=== PATIENT | male | born 1960 | race Caucasian/White ===

== ENCOUNTER 2021-01-21 17:24 | Emergency (ER) | payer MEDICAID, SELFPAY ==
[2021-01-21 17:25] VITALS: BP 130/103; PULSE 94; RESP 20; TEMP 36.8; O2SAT 94; BMI 32.5
[2021-01-21 17:29] VITALS: BP 115/89; PULSE 94; RESP 20; TEMP 36.9; O2SAT 95
--- NOTE | 2021-01-21 17:58 | ED.DCSUM_ITS ---
History of Present Illness Chief Complaint: Abd Pain Informant: Patient Narrative: 60-year-old male presenting with several weeks of abdominal pain and distention. Now having vomiting. He states that he is vomiting up food that looks undigested food that he ate several weeks ago. He tells me that about a week ago he put himself only on a liquid diet. He states he has been having severe heartburn. He tells me that he has actually gained 30 to 40 pounds over the past 2 years. His amount of food required to make him feel full has drastically decreased recently. He states the pain in his abdomen has become so severe. He tells me that he has been intermittently having pencil thin stools. He notes no blood. He has not had a bowel movement for 1 week. Past Medical History - Allergies and Home Meds Allergies/Adverse Reactions: Allergies Gadolinium-MRI Contrast Medium [DYE] Allergy (Verified 01/21/21 17:35) Anaphylaxis Penicillins Allergy (Verified 01/21/21 17:35) Hives Primary Care Physician: Care Physician,No Primary [Primary Care Provider] - Past Medical History: - - Hypothyroidism hypertension prostate cancer eosinophilic granuloma Surgical History: noncontributory Lives: Spouse/ Significant Other Smoking Status: Current every day smoker Drugs: None Review of Systems General: Denies: Chills, Fever, Sweats Eyes: Denies: Visual changes - bilaterally, Diplopia ENT: Denies: Rhinorrhea, Sore throat Cardiovascular: Denies: Chest pain, Palpitations Respiratory: Denies: Dyspnea, Cough, Dyspnea on exertion Gastrointestinal: Reports: Abdominal pain, Nausea, Vomiting, Constipation. Denies: Diarrhea, Melena, Hematochezia Genitourinary: Denies: Dysuria, Hematuria, Frequency Musculoskeletal: Denies: Back pain, Extremity Pain Skin: Denies: Rash, Wounds Neurological: Denies: Headache, Weakness, Numbness Physical Exam Vital Signs/Narrative: Vital Signs Temp Pulse Resp BP Pulse Ox 01/21/21 17:29 98.4 F 94 20 H 115/89 H 95 01/21/21 17:25 98.2 F 94 20 H 130/103 H 94 Inital Vital Signs reviewed: Yes General: Well nourished, Well developed, No Acute Distress Head: Normocephalic, Atraumatic Eyes: Perrl, EOMI ENT: Moist mucous membranes, No rhinorrhea Neck: Supple, Nontender Cardiovascular: Regular rate, Regular rhythm, No murmurs Respiratory: No distress, CTA bilaterally, Chest nontender Abdomen: Tender, Hypoactive bowel sounds, - - Distended Back: Nontender, Normal Inspection Extremities: Nontender, No edema Skin: Normal color, No rash Neurological: Alert, Oriented x3, Cranial nerves II-XII grossly intact, Normal Strength, Normal Sensation Psychological: Normal affect, Normal Mood Diagnostic/Tx/Re-eval Clinical Impression(s) from Imaging Studies Abdomen/Pelvis CT 01/21/21 19:21 IMPRESSION: 1. Pancreatitis with inflammatory process extending about the third portion the duodenum and downward along the anterior mediastinum and small bowel mesentery. 2. Marked dilatation of the stomach secondary to functional obstruction to the duodenum due to inflammatory change from the pancreatitis. 3. Large fatty infiltration liver without mass. 4. Sigmoid diverticulosis. 5. Multiple bilateral renal calculi without obstruction. Electronically Signed: Dain Chavez DO at 20:19 EST Tel [phone], Service support , KUB X-Ray 01/21/21 20:40 IMPRESSION: 1. NG tube within the gastric lumen. This could be advanced to ensure the upper port lies within the gastric lumen. 2. Distention of the stomach. Electronically Signed: Dain Chavez DO at 20:59 EST Tel [phone], Service support , Laboratory Last Values WBC 9.4 K/mm3 (4.4-11.0) 01/21/21 18: RBC 5.28 M/mm3 (4.6-6.2) 01/21/21 18: Hgb 15.5 g/dL (13.0-16.5) 01/21/21 18: Hct 48.0 % (40-54) 01/21/21 18: MCV 90.9 fL (80-94) 01/21/21 18: MCH 29.4 pg (27.0-32.0) 01/21/21 18: MCHC 32.3 g/dL (32-36) 01/21/21 18: RDW Std Deviation 48.2 fl (35.1-43.9) H 01/21/21 18: RDW Coeff of Martínez 14.5 % (11.6-14.6) 01/21/21 18: Plt Count 276 K/mm3 (150-450) 01/21/21 18: MPV 8.5 fl (6.2-12.0) 01/21/21 18: Immature Gran % (Auto) 2.600 % (0.0-0.9) H 01/21/21 18: Neut % (Auto) 74.0 % (47-70) H 01/21/21 18: Lymph % (Auto) 13.9 % (19-41) L 01/21/21 18: [place] % (Auto) 8.1 % (0-10) 01/21/21 18: Eos % (Auto) 0.6 % (0-5) 01/21/21 18: Baso % (Auto) 0.8 % (0-1) 01/21/21 18: Absolute Neuts (auto) 7.0 X10^3/uL (2.0-7.7) 01/21/21 18: Absolute Lymphs (auto) 1.31 X10^3/uL (0.83-4.51) 01/21/21 18: Nucleated RBC % 0 % (0-5) 01/21/21 18: PT 13.1 SECONDS (11.7-14.9) 01/21/21 18: INR 1.0 01/21/21 18: APTT 27.0 Seconds (24.1-36.2) 01/21/21 18: Sodium 128 mmol/L (136-145) L 01/21/21 18: Potassium 4.1 mmol/L (3.5-5.1) 01/21/21 18: Chloride 89 mmol/L (98-107) L 01/21/21 18: Carbon Dioxide 27.0 mmol/L (21.0-32.0) 01/21/21 18: Anion Gap 12 (5-15) 01/21/21 18: BUN 15 mg/dL (7-18) 01/21/21 18: Creatinine 1.00 mg/dL (0.70-1.30) 01/21/21 18:22 Estim Creat Clear Calc 76.59 ml/min 01/21/21 18:22 Est GFR (MDRD) Af Amer 97 mL/min (>60) 01/21/21 18:22 Est GFR (MDRD) Non-Af 80 mL/min (>60) 01/21/21 18:22 BUN/Creatinine Ratio 15.0 RATIO (10-20) 01/21/21 18:22 Glucose 412 mg/dL (74-106) H 01/21/21 18:22 Lactic Acid 1.3 mmol/L (0.4-1.9) 01/21/21 18: Calcium 9.8 mg/dL (8.5-10.1) 01/21/21 18: Total Bilirubin 0.60 mg/dL (0.20-1.00) 01/21/21 18:22 AST 41 U/L (15-37) H 01/21/21 18:22 ALT 59 U/L (16-61) 01/21/21 18:22 Alkaline Phosphatase 179 U/L (45-117) H 01/21/21 18:22 Total Protein 8.3 g/dL (6.4-8.2) H 01/21/21 18: Albumin 3.1 g/dL (3.2-5.0) L 01/21/21 18:22 Globulin 5.2 g/dL (2.2-4.2) H 01/21/21 18:22 Albumin/Globulin Ratio 0.6 RATIO (0.9-2.4) L 01/21/21 18:22 Amylase 47 U/L (25-115) 01/21/21 18:22 Lipase 210 U/L (73-393) 01/21/21 18:22 - Medical Decision Making The patient received IV fluids Dilaudid and Zofran. Blood work reveals normal lipase and amylase. Blood sugar is over 400 there is evidence of ketones in his blood. However he is not gapped and his CO2 is normal. Covid test pending. CT of the pelvis was obtained which shows a markedly distended stomach down to the level of the pancreas. There is a fluid density arising from the inferior aspect of the pancreatic head which surrounds a thick-walled duodenum. Radiology is concerned about a pancreatitis. However his labs are normal. However could there be some pancreatic involvement given the elevated blood sugar? He received a dose of IV insulin. I am hesitant to place him on insulin drip as his blood sugar is only 400 and he has a 1.5 to 2-hour transfer to [facility]. 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 I discussed the case with general surgery here they are concerned about a possible SMA involvement versus mass. I spoke with the patient. After NG tube placement he has put out 4000 cc of green liquid. My concern is the [place] ck of surgical subspecialties here as is our general surgeon concerned about that as well. Ultimately I think the patient will most likely require surgery. We talked about transferring to another facility and he has chosen [facility] due to the ease of getting there from [place]. He has been accepted there. We will await squad transport. ED Disposition - Plan for ED Patient: Diagnosis: Small bowel obstruction, Hyperglycemia, Acute abdominal pain Referrals: Care Physician,No Primary [Primary Care Provider] -
[2021-01-21] MEDS: Ondansetron 4 MG/2 ML Vial IV (18:18)
[2021-01-21] MEDS: HYDROmorphone 1 MG/ML Syringe IV ×3 (18:18→23:47)
[2021-01-21] MEDS: 0.9% Normal Saline 1,000 ML 125 ML IV (18:19)
[2021-01-21 18:37] LABS: Absolute Lymphocyte Count 1.31 X10^3/uL (0.83-4.51); Basophil# 0.08 X10^3/uL; Basophil% 0.8 % (0-1); Eosinophil# 0.06 X10^3/uL; Eosinophils% 0.6 % (0-5); Hemoglobin 15.5 g/dL (13.0-16.5); Lymphocyte # 1.31 X10^3/ul (4.0); Lymphocyte % 13.9 % (19-41); Mean Corp Hgb Conc 32.3 g/dL (32-36); Mean Corpuscular Hgb 29.4 pg (27.0-32.0); Mean Corpuscular Volume 90.9 fL (80-94); Mean Platelet Vol. 8.5 fl (6.2-12.0); Monocyte# 0.76 X10^3/uL; Monocyte% 8.1 % (0-10); NRBC Flagged by Analyzer 0 % (0-5); Neutrophil # 6.98 X10^3/uL (2.7-7.7); Platelet Count 276 K/mm3 (150-450); RBC Distribution Width CV 14.5 % (11.6-14.6); RBC Distribution Width SD 48.2 fl (35.1-43.9); Red Blood Count 5.28 M/mm3 (4.6-6.2); White Blood Count 9.4 K/mm3 (4.4-11.0)
[2021-01-21 18:50] LABS: Prothrombin Time (Protime)PT. 13.1 SECONDS (11.7-14.9)
[2021-01-21 18:56] LABS: ALB/GLOB Ratio 0.6 RATIO (0.9-2.4); AST(SGOT) 41 U/L (15-37); Alanine Aminotransfer ALT/SGPT 59 U/L (16-61); Albumin, Serum 3.1 g/dL (3.2-5.0); Alkaline Phosphatase 179 U/L (45-117); Amylase 47 U/L (25-115); Anion Gap 12 (5-15); BUN 15 mg/dL (7-18); Calcium,Total 9.8 mg/dL (8.5-10.1); Chloride 89 mmol/L (98-107); EST Glomerular Filtration Rate 80 mL/min (>60); Est Glom Filt Rate - Afr Amer 97 mL/min (>60); Estimated Creatinine Clearance 76.59 ml/min; Globulin 5.2 g/dL (2.2-4.2); Glucose 412 mg/dL (74-106); Lipase 210 U/L (73-393); Potassium 4.1 mmol/L (3.5-5.1); Protein, Total 8.3 g/dL (6.4-8.2); Sodium Level 128 mmol/L (136-145)
[2021-01-21 19:08] LABS: Lactic Acid 1.3 mmol/L (0.4-1.9)
--- NOTE | 2021-01-21 19:21 | CT_ITS ---
STUDY: CT ABDOMEN AND PELVIS WITH CONTRAST REASON FOR EXAM: Male, 60 years old. Abdominal pain and swelling. RADIATION DOSAGE (If Supplied By Facility): CTDIvol = ( 20.18 ) mGy, DLP = ( 1132.06 ) mGycm TECHNIQUE: Transaxial images were obtained from the dome of the diaphragm to the symphysis pubis without oral contrast. IV 100mL Isovue-300 was administered. Sagittal and coronal images were reconstructed. Individualized dose optimization techniques were used for this CT. COMPARISON: 07/30/2016. FINDINGS: Diffuse emphysematous changes the lung bases without basilar infiltrate. The visualized portions of the heart are within normal limits. The liver is enlarged and diffusely fatty infiltrated. There is no focal mass. Normal gallbladder and extrahepatic biliary system. Normal spleen. There is slight enlargement of the inferior head of the pancreas which is heterogenous in density. There is fluid density density arising from the inferior aspect of the the pancreatic head, which surrounds the thick walled duodenum and extends downward into the small bowel mesentery and along the anterior retroperitoneum to the pelvic brim. This is not previously present and is thought to represent pancreatitis. Normal bilateral adrenal glands. The kidneys are of normal size and cortical thickness. There is normal contrast enhancement. There are multiple small nonobstructing calculi bilaterally without hydronephrosis. Normal visualized ureters. The stomach is distended with fluid. This is thought to be due to the inflammatory changes and luminal narrowing of the third portion of the duodenum secondary to the associated pancreatitis. Normal small intestine. There is descending and sigmoid diverticulosis without acute inflammatory change. The proximal colon is unremarkable. There is non-visualization of the appendix. Normal abdominal aorta. Normal inferior vena cava. Normal retroperitoneum. Normal urinary bladder. Small prostate. There is no pelvic lymphadenopathy. No free air or free fluid is seen within the peritoneal cavity. There are small bilateral inguinal hernias of omental fat. The abdominal wall is otherwise unremarkable. There are diffuse degenerative changes of the visualized lumbar spine. Mild anterolisthesis of L4 and L5 without pars defects. CT/Abdomen/Pelvis W IV Cont ONLY IMPRESSION: 1. Pancreatitis with inflammatory process extending about the third portion the duodenum and downward along the anterior mediastinum and small bowel mesentery. 2. Marked dilatation of the stomach secondary to functional obstruction to the duodenum due to inflammatory change from the pancreatitis. 3. Large fatty infiltration liver without mass. 4. Sigmoid diverticulosis. 5. Multiple bilateral renal calculi without obstruction. Electronically Signed: Dain Chavez DO at 20:19 EST Tel [phone], Service support ,
[2021-01-21] MEDS: Lidocaine 4% 5 ML Ampul 2 ML INHALATION (20:19)
--- NOTE | 2021-01-21 20:40 | RAD_ITS ---
STUDY: X-RAY - ABDOMEN/PELVIS REASON FOR EXAM: Male, 60 years old. NG tube placement. TECHNIQUE: Single AP view of the lower chest and upper abdomen COMPARISON: None. FINDINGS: Normal visualized lung bases. There is an enteric tube with its tip approximately 11 cm below the diaphragm. Air and fluid is seen in the stomach. The remainder the abdomen is poorly visualized There is no demonstrated free abdominal air. The visualized liver and spleen are grossly normal in size and morphology. Contrast is seen in both kidneys secondary to prior abdominal CT. Normal soft tissue structures. Normal visualized osseous structures. RAD/Abdomen Single View (Portable) IMPRESSION: 1. NG tube within the gastric lumen. This could be advanced to ensure the upper port lies within the gastric lumen. 2. Distention of the stomach. Electronically Signed: Dain Chavez DO at 20:59 EST Tel [phone], Service support ,
[2021-01-21 20:58] VITALS: BP 116/80; PULSE 87; RESP 19; O2SAT 92
[2021-01-21] MEDS: Insulin Lispro 100 UNIT/ML INSULN.PEN 10 UNIT SC (21:14)
[2021-01-21] MEDS: 0.9% Normal Saline 1,000 ML 999 ML IV (21:14)
[2021-01-21 22:26] VITALS: BP 124/94; PULSE 83; RESP 18; O2SAT 92
[2021-01-21 22:31] LABS: Bedside Glucose 327 mg/dL (70-110)
== END 2021-01-21 23:58 | disposition short-term general hospital (02) ==
LOC: ED 18:22
PROVIDERS: Emergency Provider Emergency Medicine
DX: K56.609 Unspecified intestinal obstruction, unspecified as to partial versus complete obstruction (principal); R73.9 Hyperglycemia, unspecified; R10.9 Unspecified abdominal pain; E03.9 Hypothyroidism, unspecified; I10 Essential (primary) hypertension; K57.30 Diverticulosis of large intestine without perforation or abscess without bleeding; K76.0 Fatty (change of) liver, not elsewhere classified; K85.90 Acute pancreatitis without necrosis or infection, unspecified; N20.0 Calculus of kidney; F17.200 Nicotine dependence, unspecified, uncomplicated; Z85.46 Personal history of malignant neoplasm of prostate; Z88.0 Allergy status to penicillin
CPT/HCPCS: 74018; 74177; 80053; 82009; 82150; 82962; 83605; 83690; 85025; 85610; 85730; 87426; 94640; 96361; 96374; 96375; 96376; 99285; J7030; Q9967; A4216; J2405

== ENCOUNTER → 2021-02-22 15:48 | Outpatient (CLI) | payer MEDICAID, SELFPAY ==
[2021-02-22 14:20] VITALS: BMI 29.8
[2021-02-22 16:29] LABS: Absolute Lymphocyte Count 2.47 X10^3/uL (0.83-4.51); Basophil# 0.07 X10^3/uL; Basophil% 0.8 % (0-1); Eosinophil# 0.26 X10^3/uL; Hematocrit 43.4 % (40-54); Hemoglobin 14.1 g/dL (13.0-16.5); Lymphocyte # 2.47 X10^3/ul (4.0); Lymphocyte % 28.7 % (19-41); Mean Corp Hgb Conc 32.5 g/dL (32-36); Mean Corpuscular Hgb 29.2 pg (27.0-32.0); Mean Corpuscular Volume 89.9 fL (80-94); Mean Platelet Vol. 8.6 fl (6.2-12.0); Monocyte# 0.73 X10^3/uL; Monocyte% 8.5 % (0-10); NRBC Flagged by Analyzer 0 % (0-5); Neutrophil # 5.03 X10^3/uL (2.7-7.7); Neutrophil % 58.4 % (47-70); Platelet Count 305 K/mm3 (150-450); RBC Distribution Width SD 49.3 fl (35.1-43.9); Red Blood Count 4.83 M/mm3 (4.6-6.2); White Blood Count 8.6 K/mm3 (4.4-11.0)
[2021-02-22 16:49] LABS: Vitamin D,25 Hydroxy 21.4 ng/mL
[2021-02-22 16:51] LABS: Hemoglobin A1c 10.4 % (3.8-5.6)
[2021-02-22 16:56] LABS: ALB/GLOB Ratio 0.8 RATIO (0.9-2.4); AST(SGOT) 29 U/L (15-37); Alanine Aminotransfer ALT/SGPT 50 U/L (16-61); Albumin, Serum 3.4 g/dL (3.2-5.0); Alkaline Phosphatase 113 U/L (45-117); Anion Gap 7 (5-15); BUN 16 mg/dL (7-18); BUN/Creat Ratio 17.4 RATIO (10-20); Calcium,Total 9.5 mg/dL (8.5-10.1); Chloride 103 mmol/L (98-107); Creatinine, Serum 0.92 mg/dL (0.70-1.30); EST Glomerular Filtration Rate 88 mL/min (>60); Est Glom Filt Rate - Afr Amer 107 mL/min (>60); Glucose 91 mg/dL (74-106); PSA,Total - Annual Screen 0.57 ng/mL (0.00-4.00); Potassium 4.2 mmol/L (3.5-5.1); Protein, Total 7.4 g/dL (6.4-8.2); Sodium Level 137 mmol/L (136-145)
[2021-02-22 18:00] LABS: Free T3 2.3 pg/mL (2.18-3.98); T4 Free Direct 0.64 ng/dL (0.76-1.46)
== END ==
PROVIDERS: PCP Internal Medicine; Visit Provider Internal Medicine
DX: R19.03 Right lower quadrant abdominal swelling, mass and lump (principal); R79.89 Other specified abnormal findings of blood chemistry
CPT/HCPCS: 36415; 80053; 82306; 83036; 84153; 84439; 84443; 84481; 85025; G0103

== ENCOUNTER → 2021-03-02 17:45 | Outpatient (CLI) | payer MEDICAID, SELFPAY ==
[2021-02-22 14:20] VITALS: BMI 29.8
--- NOTE | 2021-03-02 17:58 | CT_ITS ---
INDICATION: SMALL BOWEL OBSTRUCTION, PANCREATIC MASS EXAMINATION: CT Abdomen And Pelvis W/ Contrast Injection TECHNIQUE: Helically acquired images were obtained of the abdomen and pelvis after IV contrast. A radiation dose optimization technique was used for this scan. IV Contrast dosage and agent: 100 cc ISOVUE-300 Oral contrast: Yes. COMPARISON: 01/21/2021 FINDINGS: Visualized lung bases: Severe emphysematous changes. Liver: Enlarged. Diffusely hypodense consistent with fatty liver. Gallbladder: Unremarkable Spleen: Unremarkable Pancreas: Interval decrease in size of thin-walled extrapancreatic fluid collection inferior to the head of the pancreas measuring 4.6 x 4.8 x 2.4 cm, previously 7.7 x 6.5 x 4.7 cm. 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 Adrenal Glands: Unremarkable Kidneys: Unremarkable GI Tract: Status post gastrojejunostomy. Interval improvement in stricture of the third portion of the duodenum. Scattered diverticula throughout the colon without evidence of inflammation. Vasculature: Unremarkable Lymphadenopathy: Persistent peripancreatic lymphadenopathy. For example a 2.1 cm peripancreatic node (image 64, series 601). Peritoneum: No ascites. Bladder: Unremarkable Reproductive organs: Unremarkable Bones/Soft tissues: Small bilateral inguinal hernias of omental fat. There are diffuse degenerative changes of the visualized lumbar spine. Grade I anterolisthesis of L4 and L5 without pars defects. CT/Abdomen/Pelvis WITH Contrast IMPRESSION: Interval decrease in size of walled-off necrosis located inferior to the pancreatic head. Interval decrease in extent of pancreatic necrosis in the head of the pancreas as well. Interval improvement in stricture of the third portion of the duodenum. Cannot rule out underlying mass in the head of the pancreas. Recommend additional short term follow-up CT abdomen/pelvis. Postsurgical changes from recent gastrojejunostomy. Otherwise, no change from prior exam. Electronically Signed: Kaiser Pedro MD at 21:36 EDT Tel , Service support ,
== END ==
PROVIDERS: PCP Internal Medicine
DX: K86.89 Other specified diseases of pancreas (principal); K56.609 Unspecified intestinal obstruction, unspecified as to partial versus complete obstruction
CPT/HCPCS: 74177; Q9967

== ENCOUNTER → 2021-03-12 13:17 | Outpatient (CLI) | payer MEDICAID, SELFPAY ==
[2021-02-22 14:20] VITALS: BMI 29.8
--- NOTE | 2021-03-12 13:19 | VDUE_ITS ---
Reason For Study: PAIN Right Proximal Right jugular vein is spontaneous, widely patent, phasic, with no intraluminal echogenicity noted. Right subclavian vein is spontaneous, widely patent, phasic, with no intraluminal echogenicity noted. Right Lower Arm Right radial vein is compressible. Right ulnar vein is compressible. Right Arm Right axillary vein is spontaneous, patent, phasic, competent, compressible and demonstrates augmentation. Right brachial vein is compressible. Right cephalic vein is compressible. Right basilic vein is compressible. VL/Venous Duplex US, Unilateral Interpretation Summary No evidence for acute deep venous thrombosis[right] upper extremity with patent and compressible cephalic and basilic veins. Ordering Physician: Elizabeth Costa Referring Physician: Elizabeth Costa Performed By: Valery Chang, LAVERNECS, RVT ?
== END ==
PROVIDERS: PCP Internal Medicine; Referring Provider Internal Medicine; Visit Provider Internal Medicine
DX: G56.21 Lesion of ulnar nerve, right upper limb (principal)
CPT/HCPCS: 93971

== ENCOUNTER 2021-03-12 19:48 | Emergency (ER) | payer MEDICAID, SELFPAY ==
[2021-03-12 19:48] VITALS: BP 153/119; PULSE 107; RESP 15; TEMP 36.7; O2SAT 98; BMI 31.1
[2021-03-12 19:56] VITALS: BP 153/119; PULSE 102; RESP 16; O2SAT 95
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
[2021-03-12 20:48] VITALS: BP 156/98; PULSE 101; RESP 18; O2SAT 96
== END 2021-03-12 22:21 | disposition home or self-care (01) ==
PROVIDERS: Emergency Provider Emergency Medicine; PCP Internal Medicine
DX: T40.601A Poisoning by unspecified narcotics, accidental (unintentional), initial encounter (principal); J44.9 Chronic obstructive pulmonary disease, unspecified; K21.9 Gastro-esophageal reflux disease without esophagitis; E11.9 Type 2 diabetes mellitus without complications; E03.9 Hypothyroidism, unspecified; F32.9 Major depressive disorder, single episode, unspecified; Z85.07 Personal history of malignant neoplasm of pancreas; F17.210 Nicotine dependence, cigarettes, uncomplicated; F12.90 Cannabis use, unspecified, uncomplicated
CPT/HCPCS: 93971; 99284; A4216

== ENCOUNTER → 2021-03-17 09:43 | Outpatient (CLI) | payer MEDICAID, SELFPAY ==
[2021-03-12 19:48] VITALS: BMI 31.1
[2021-03-17 12:30] LABS: ALB/GLOB Ratio 1.1 RATIO (0.9-2.4); AST(SGOT) 26 U/L (15-37); Alanine Aminotransfer ALT/SGPT 36 U/L (16-61); Albumin, Serum 3.9 g/dL (3.2-5.0); Alkaline Phosphatase 122 U/L (45-117); Anion Gap 6 (5-15); BUN 11 mg/dL (7-18); BUN/Creat Ratio 11.8 RATIO (10-20); Calcium,Total 9.7 mg/dL (8.5-10.1); Chloride 103 mmol/L (98-107); Creatinine, Serum 0.94 mg/dL (0.70-1.30); EST Glomerular Filtration Rate 87 mL/min (>60); Est Glom Filt Rate - Afr Amer 105 mL/min (>60); Globulin 3.5 g/dL (2.2-4.2); Glucose 109 mg/dL (74-106); Potassium 4.1 mmol/L (3.5-5.1); Protein, Total 7.4 g/dL (6.4-8.2); Sodium Level 137 mmol/L (136-145)
[2021-03-18 16:42] LABS: Carbohydrate AG 19-9 34 U/mL (0-35)
== END ==
PROVIDERS: PCP Internal Medicine; Referring Provider Internal Medicine; Visit Provider Internal Medicine
DX: K86.9 Disease of pancreas, unspecified (principal)
CPT/HCPCS: 36415; 80053; 86301

== ENCOUNTER 2022-01-06 09:42 | Outpatient (CLI) | payer MEDICAID, SELFPAY ==
[2022-01-06 12:06] LABS: Absolute Lymphocyte Count 1.45 X10^3/uL (0.83-4.51); Absolute Neutrophil Count 4.6 X10^3/uL (2.0-7.7); Basophil# 0.08 X10^3/uL; Basophil% 1.1 % (0-1); Eosinophil# 0.33 X10^3/uL; Eosinophils% 4.5 % (0-5); Hematocrit 44.4 % (40-54); Hemoglobin 15.2 g/dL (13.0-16.5); Lymphocyte # 1.45 X10^3/ul (0.83-4.51); Lymphocyte % 19.7 % (19-41); Mean Corp Hgb Conc 34.2 g/dL (32-36); Mean Corpuscular Hgb 29.6 pg (27.0-32.0); Mean Corpuscular Volume 86.5 fL (80-94); Mean Platelet Vol. 9.4 fl (6.2-12.0); Monocyte# 0.84 X10^3/uL; Monocyte% 11.4 % (0-10); NRBC Flagged by Analyzer 0 % (0-5); Neutrophil % 62.5 % (47-70); Platelet Count 221 K/mm3 (150-450); RBC Distribution Width CV 14.4 % (11.6-14.6); RBC Distribution Width SD 45.8 fl (35.1-43.9); Red Blood Count 5.13 M/mm3 (4.6-6.2); White Blood Count 7.4 K/mm3 (4.4-11.0)
[2022-01-06 12:38] LABS: AST(SGOT) 15 U/L (15-37); Alanine Aminotransfer ALT/SGPT 31 U/L (16-61); Albumin, Serum 3.5 g/dL (3.2-5.0); Alkaline Phosphatase 105 U/L (45-117); Anion Gap 5 (5-15); BUN 16 mg/dL (7-18); BUN/Creat Ratio 20.9 RATIO (10-20); Chloride 106 mmol/L (98-107); Cholesterol 163 mg/dL (200); Creatinine, Serum 0.76 mg/dL (0.70-1.30); EST Glomerular Filtration Rate 109 mL/min (>60); Est Glom Filt Rate - Afr Amer 132 mL/min (>60); Free T3 2.5 pg/mL (2.18-3.98); Globulin 3.5 g/dL (2.2-4.2); Glucose 91 mg/dL (74-106); High Density Lipoprotein 41 mg/dL; Potassium 4.3 mmol/L (3.5-5.1); Sodium Level 138 mmol/L (136-145); T4 Free Direct 0.65 ng/dL (0.76-1.46); Thyroid Stim Hormone (TSH) 8.36 uIU/mL (0.358-3.74); Triglycerides 305 mg/dL; Very Low Density Lipoprotein 61 mg/dL (5-40)
== END 2022-01-06 23:59 | disposition home or self-care (01) ==
LOC: BIMLAB 09:42
PROVIDERS: PCP Internal Medicine; Referring Provider Internal Medicine; Visit Provider Internal Medicine
DX: J43.9 Emphysema, unspecified (principal); E11.9 Type 2 diabetes mellitus without complications; E03.9 Hypothyroidism, unspecified; K21.9 Gastro-esophageal reflux disease without esophagitis; R10.9 Unspecified abdominal pain; R19.01 Right upper quadrant abdominal swelling, mass and lump; Z72.0 Tobacco use
CPT/HCPCS: 36415; 80053; 80061; 82306; 84439; 84443; 84481; 85025

== ENCOUNTER → 2022-03-31 | Outpatient (CLI) | payer MEDICAID, SELFPAY ==
--- NOTE | 2022-03-31 17:24 | CT_ITS ---
STUDY: CT ABDOMEN AND PELVIS WITH CONTRAST REASON FOR EXAM: Male, 61 years old. Abdominal mass. Abdominal bloating. RADIATION DOSAGE (If Supplied By Facility): CTDIvol = ( 17.04 ) mGy, DLP = ( 1032.20 ) mGycm TECHNIQUE: Transaxial images were obtained from the dome of the diaphragm to the symphysis pubis without oral contrast. IV 100mL Isovue-370 was administered. Sagittal and coronal images were reconstructed. Individualized dose optimization techniques were used for this CT. COMPARISON: Comparison is made with prior study dated 03/02/2021. FINDINGS: The visualized lung bases are unremarkable. The visualized portions of the heart are within normal limits. There is decreased attenuation of the liver consistent with steatosis. Normal gallbladder and extrahepatic biliary system. Normal spleen. Normal pancreas. No pancreatic mass is seen. The previously seen fluid collection inferior to the head of the pancreas is not seen at this time. Normal bilateral adrenal glands. Normal right kidney. Normal left kidney. Normal visualized stomach. Normal small intestine. There are scattered colonic diverticula consistent with diverticulosis. The appendix is visualized and appears normal. Normal abdominal aorta. Normal inferior vena cava. Normal retroperitoneum. Normal urinary bladder. Normal abdominal wall. There are degenerative changes of the visualized lumbar spine. Grade 1 anterolisthesis of L4 on L5. CT/Abdomen/Pelvis WITH Contrast IMPRESSION: No acute abnormality is seen. Fatty infiltration of the liver. Electronically Signed: Vladislav Peña MD at 9:12 EDT ,
[2022-03-31 17:41] LABS: CREATININE FINGERSTICK 0.9 mg/dL (0.70-1.30); EGFR FINGERSTICK > 60.0000 mL/min (>60)
== END | disposition home or self-care (01) ==
LOC: CT 17:22
PROVIDERS: PCP Internal Medicine; Visit Provider Internal Medicine
DX: R19.01 Right upper quadrant abdominal swelling, mass and lump (principal)
CPT/HCPCS: 74177; Q9967

== ENCOUNTER → 2022-04-26 | Outpatient (CLI) | payer MEDICAID, SELFPAY ==
[2022-04-26 10:42] LABS: Free T3 2.9 pg/mL (2.18-3.98); T4 Free Direct 0.69 ng/dL (0.76-1.46); Thyroid Stim Hormone (TSH) 9.47 uIU/mL (0.358-3.74)
== END | disposition home or self-care (01) ==
LOC: BIMLAB 08:33
PROVIDERS: PCP Internal Medicine; Visit Provider Internal Medicine
DX: E03.9 Hypothyroidism, unspecified (principal)
CPT/HCPCS: 36415; 84439; 84443; 84481

== ENCOUNTER → 2022-08-29 | Outpatient (CLI) | payer MEDICAID, SELFPAY ==
--- NOTE | 2022-08-29 09:18 | RAD_ITS ---
STUDY: CHEST SERIES--PA AND LATERAL VIEWS OF 0926 HOURS ON 08/29/2022 REASON FOR EXAM: 62-year-old male with cough, phlegm, and dyspnea. TECHNIQUE: A standard 2 view chest x-ray series was obtained. COMPARISON: 07/30/2016. FINDINGS: Mild demineralization. No cardiomegaly. Mild emphysema with mild fibrotic changes throughout both lungs, especially in the left lower lobe. No pulmonary infiltrates, atelectasis, effusion or pulmonary mass lesions. No pneumonia, pneumonitis, or bronchitis. RAD/Chest PA and Lateral IMPRESSION: 1. Mild emphysema with mild fibrotic changes throughout both lungs, especially in the left lower lobe. 2. No other evidence of active cardiopulmonary disease. 3. No pneumonia, pneumonitis, or bronchitis. 4. Mild demineralization. Electronically Signed: Michael Campos MD at 1:54 EDT ,
[2022-08-29 09:53] LABS: Absolute Lymphocyte Count 1.96 X10^3/uL (0.83-4.51); Absolute Neutrophil Count 4.9 X10^3/uL (2.0-7.7); Basophil# 0.09 X10^3/uL; Basophil% 1.1 % (0-1); Eosinophil# 0.24 X10^3/uL; Eosinophils% 2.9 % (0-5); Hematocrit 42.4 % (40-54); Hemoglobin 13.9 g/dL (13.0-16.5); Lymphocyte # 1.96 X10^3/ul (0.83-4.51); Lymphocyte % 23.3 % (19-41); Mean Corp Hgb Conc 32.8 g/dL (32-36); Mean Corpuscular Hgb 29.2 pg (27.0-32.0); Mean Corpuscular Volume 89.1 fL (80-94); Mean Platelet Vol. 8.2 fl (6.2-12.0); Monocyte# 1.03 X10^3/uL; Monocyte% 12.3 % (0-10); NRBC Flagged by Analyzer 0 % (0-5); Neutrophil # 4.89 X10^3/uL (2.7-7.7); Neutrophil % 58.1 % (47-70); Platelet Count 337 K/mm3 (150-450); RBC Distribution Width CV 14.6 % (11.6-14.6); RBC Distribution Width SD 48.5 fl (35.1-43.9); Red Blood Count 4.76 M/mm3 (4.6-6.2); White Blood Count 8.4 K/mm3 (4.4-11.0)
[2022-08-29 10:13] LABS: ALB/GLOB Ratio 0.7 RATIO (0.9-2.4); AST(SGOT) 16 U/L (15-37); Alanine Aminotransfer ALT/SGPT 27 U/L (16-61); Albumin, Serum 3.1 g/dL (3.2-5.0); Alkaline Phosphatase 113 U/L (45-117); Anion Gap 7 (5-15); BUN 19 mg/dL (7-18); BUN/Creat Ratio 22.9 RATIO (10-20); Calcium,Total 9.2 mg/dL (8.5-10.1); Chloride 105 mmol/L (98-107); Cholesterol 153 mg/dL (200); Creatinine, Serum 0.83 mg/dL (0.70-1.30); EST Glomerular Filtration Rate 99 mL/min (>60); Est Glom Filt Rate - Afr Amer 120 mL/min (>60); Free T3 2.9 pg/mL (2.18-3.98); Globulin 4.2 g/dL (2.2-4.2); Glucose 98 mg/dL (74-106); High Density Lipoprotein 29 mg/dL; PSA,Total - Annual Screen 0.51 ng/mL (0.00-4.00); Potassium 4.2 mmol/L (3.5-5.1); Protein, Total 7.3 g/dL (6.4-8.2); Sodium Level 140 mmol/L (136-145); T4 Free Direct 0.85 ng/dL (0.76-1.46); Thyroid Stim Hormone (TSH) 4.95 uIU/mL (0.358-3.74); Triglycerides 225 mg/dL; Very Low Density Lipoprotein 45 mg/dL (5-40)
== END | disposition home or self-care (01) ==
LOC: LAB 09:06
PROVIDERS: PCP Internal Medicine; Referring Provider Internal Medicine; Visit Provider Internal Medicine
DX: J43.9 Emphysema, unspecified (principal); E11.9 Type 2 diabetes mellitus without complications; R05.9 Cough, unspecified; E03.9 Hypothyroidism, unspecified; Z12.5 Encounter for screening for malignant neoplasm of prostate; Z72.0 Tobacco use; K21.9 Gastro-esophageal reflux disease without esophagitis
CPT/HCPCS: 84153; 36415; 71046; 80053; 80061; 84439; 84443; 84481; 85025; G0103

== ENCOUNTER → 2023-01-23 | Outpatient (CLI) | payer MEDICAID, SELFPAY ==
--- NOTE | 2023-01-23 08:12 | CT_ITS ---
STUDY: CT ABDOMEN AND PELVIS WITH CONTRAST REASON FOR EXAM: Male, 62 years old. F/U mass pancreas - compare with prior scans RADIATION DOSAGE (If Supplied By Facility): CTDIvol = ( 15.81 ) mGy, DLP = ( 1106.38 ) mGycm TECHNIQUE: Transaxial images were obtained from the dome of the diaphragm to the symphysis pubis without oral contrast. IV 100mL Isovue-370 was administered. Sagittal and coronal images were reconstructed. Individualized dose optimization techniques were used for this CT. COMPARISON: Comparison is made with prior study dated 03/31/2022. FINDINGS: The visualized lung bases are unremarkable. The visualized portions of the heart are within normal limits. There is decreased attenuation of the liver consistent with steatosis. Hepatomegaly. Normal gallbladder and extrahepatic biliary system. Normal spleen. Normal pancreas. Normal bilateral adrenal glands. Normal right kidney. Normal left kidney. Normal visualized stomach. Normal small intestine. Moderate amount of fecal material is seen in the colon. The patient is status post appendectomy. There is scattered atherosclerotic calcification of the abdominal aorta, without a demonstrated aneurysm. Normal inferior vena cava. There is borderline retroperitoneal lymphadenopathy with enlarged nodes no greater than 10mm in the short axis diameter. Normal urinary bladder. Normal abdominal wall. There are diffuse degenerative changes of the visualized lumbar spine. Mild degree of anterolisthesis of L4 on L5 most likely secondary to facet joint osteoarthritis. Schmorl''s node is seen in the superior endplate of the L2 vertebra. CT/Abdomen/Pelvis WITH Contrast IMPRESSION: Fatty infiltration of the liver. Hepatomegaly. No acute abnormality is seen. Electronically Signed: Vladislav Peña MD at 12:33 EST ,
[2023-01-23 08:34] LABS: Absolute Lymphocyte Count 2.89 X10^3/uL (0.83-4.51); Absolute Neutrophil Count 4.3 X10^3/uL (2.0-7.7); Basophil# 0.08 X10^3/uL; Basophil% 0.9 % (0-1); Eosinophil# 0.31 X10^3/uL; Eosinophils% 3.6 % (0-5); Hematocrit 46.7 % (40-54); Hemoglobin 15.6 g/dL (13.0-16.5); Lymphocyte # 2.89 X10^3/ul (0.83-4.51); Lymphocyte % 33.7 % (19-41); Mean Corp Hgb Conc 33.4 g/dL (32-36); Mean Corpuscular Hgb 29.3 pg (27.0-32.0); Mean Corpuscular Volume 87.8 fL (80-94); Mean Platelet Vol. 8.7 fl (6.2-12.0); Monocyte% 10.5 % (0-10); NRBC Flagged by Analyzer 0 % (0-5); Neutrophil # 4.27 X10^3/uL (2.7-7.7); Neutrophil % 49.9 % (47-70); Platelet Count 222 K/mm3 (150-450); RBC Distribution Width CV 14.6 % (11.6-14.6); RBC Distribution Width SD 46.9 fl (35.1-43.9); Red Blood Count 5.32 M/mm3 (4.6-6.2); White Blood Count 8.6 K/mm3 (4.4-11.0)
[2023-01-23 08:40] LABS: CREATININE FINGERSTICK < 0.9 mg/dL (0.70-1.30); EGFR FINGERSTICK > 60.0000 mL/min (>60)
[2023-01-23 09:10] LABS: AST(SGOT) 15 U/L (15-37); Alanine Aminotransfer ALT/SGPT 29 U/L (16-61); Albumin, Serum 3.6 g/dL (3.2-5.0); Alkaline Phosphatase 112 U/L (45-117); Anion Gap 6 (5-15); BUN 19 mg/dL (7-18); BUN/Creat Ratio 21.9 RATIO (10-20); Chloride 104 mmol/L (98-107); Cholesterol 193 mg/dL (200); Creatinine, Serum 0.87 mg/dL (0.70-1.30); EST Glomerular Filtration Rate 94 mL/min (>60); Est Glom Filt Rate - Afr Amer 114 mL/min (>60); Free T3 2.4 pg/mL (2.18-3.98); Globulin 3.7 g/dL (2.2-4.2); Glucose 119 mg/dL (74-106); High Density Lipoprotein 36 mg/dL; Potassium 4.2 mmol/L (3.5-5.1); Protein, Total 7.3 g/dL (6.4-8.2); Sodium Level 139 mmol/L (136-145); Triglycerides 578 mg/dL
== END | disposition home or self-care (01) ==
LOC: CT 08:05
PROVIDERS: PCP Internal Medicine; Referring Provider Internal Medicine; Visit Provider Internal Medicine
DX: Z13.220 Encounter for screening for lipoid disorders (principal); E11.9 Type 2 diabetes mellitus without complications; Z98.0 Intestinal bypass and anastomosis status; R19.01 Right upper quadrant abdominal swelling, mass and lump; R10.9 Unspecified abdominal pain; E55.9 Vitamin D deficiency, unspecified; E03.9 Hypothyroidism, unspecified; Z72.0 Tobacco use; K21.9 Gastro-esophageal reflux disease without esophagitis
CPT/HCPCS: 36415; 74177; 80053; 80061; 82306; 84443; 84481; 85025; Q9967

== ENCOUNTER 2023-05-16 04:21 | Emergency (ER) | payer MEDICAID, SELFPAY ==
[2023-05-16 04:23] VITALS: BP 170/95; PULSE 102; RESP 20; TEMP 36.6; O2SAT 94; BMI 32.1
--- NOTE | 2023-05-16 04:36 | RAD_ITS ---
INDICATION: pain -- hx bone ca in past EXAMINATION/TECHNIQUE: X-RAY - XR Spine Cervical 4 or 5 Views COMPARISON FINDINGS: VERTEBRAE: Preserved vertebral body height. No fracture. No spondylolisthesis. Preservation of the normal cervical lordosis. No significant facet arthropathy. DISCS: There is severe multilevel spondylosis more prominent at C4-5, C5-6 and C6-7. NECK SOFT TISSUES: No prevertebral soft tissue widening. LUNG APICES: Clear. RAD/Cerv Spine 2 or 3 Views IMPRESSION: There is severe multilevel spondylosis more prominent at C4-5, C5-6 and C6-7. Electronically Signed: Juan M Glaser MD at 5:00 EDT ,
--- NOTE | 2023-05-16 04:37 | EDS_ITS ---
HPI History of Present Illness Chief Complaint: Other, Pain/Inj Informant: patient and spouse/S.O. Narrative Narrative: Increasing right posterior neck pain and swelling over the past week. Pain worse with movement. No radicular pain down the arms. 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 He had previous radiation therapies. This history is concerned of cancer. Denies symptoms in the neck in the past. Prior similar symptoms: No PFSH PFSH Medical History Arthritis or polyarthritis, rheumatoid Eosinophilic granuloma of bone Neuropathy Pancreatic tumor Home Medications blood sugar diagnostic (True Metrix Glucose Test Strip) #100 ea 12/06/21 [Rx Last Taken Unknown] handicap placard #1 ea 04/27/22 [Rx Last Taken Unknown] pantoprazole 40 mg tablet,delayed release 40 mg PO DAILY #90 tabs 12/16/22 [Rx Last Taken Unknown] albuterol sulfate 90 mcg/actuation aerosol inhaler 2 puff inhalation Q8H PRN shortness of breath or wheezing #8.5 grams 01/04/23 [Rx Last Taken Unknown] tamsulosin 0.4 mg capsule 0.4 mg PO QHS #30 caps 01/04/23 [Rx Last Taken Unknown] cholecalciferol (vitamin D3) 25 mcg (1,000 unit) capsule 25 mcg PO DAILY 01/23/23 [History Last Taken Unknown] levothyroxine 100 mcg tablet 100 mcg PO DAILY #90 tabs 01/23/23 [Rx Last Taken Unknown] metformin 500 mg tablet,extended release 24hr 500 mg PO BID #180 tabs 05/02/23 [Rx Last Taken Unknown] diazepam 5 mg tablet 5 mg PO Q8 PRN Muscle Spasm #12 tabs 05/16/23 [Rx Last Taken Unknown] ibuprofen 600 mg tablet 600 mg PO Q6H PRN PRN pain #20 TABLETS 05/16/23 [Rx Last Taken Unknown] Allergy/AdvReac Type Severity Reaction Status Date / Time Gadolinium-MRI Contrast Allergy Anaphylaxis Verified 05/16/23 04:23 Medium [DYE] Penicillins Allergy Hives Verified 05/16/23 04:23 Family History Father Cancer Father Diabetes Mother Diabetes Surgical History Bowel obstruction S/P appendectomy Social History Smoking Status: Current every day smoker tobacco type: cigarettes alcohol intake: never substance use type: does not use ROS ROS ED Constitutional Constitutional ED: Denies chills, fever(s) or sweats Eyes Eyes: Denies change in vision ENT ENT ED: Denies dysphagia or sore throat Cardiovascular Cardiovascular: Denies chest pain, leg edema, palpitations or racing heartbeat Respiratory/Chest Respiratory/Chest: Denies cough, dyspnea or dyspnea on exertion Gastrointestinal Gastrointestinal: Denies abdominal pain, diarrhea, nausea or vomiting Genitourinary Genitourinary ED: Denies dysuria, hematuria or urinary frequency Musculoskeletal Musculoskeletal: Reports neck pain; Denies back pain or extremity pain Integumentary Denies rash or wounds Neurologic Neurologic: Denies headache(s), paresthesias or weakness EXAM Physical Exam Const Vital Signs: 05/16/23 04:23 05/16/23 04:23 Temperature 98 F Temperature Source Temporal Pulse Rate 102 H Respiratory Rate 20 H Respiratory Pattern Normal Blood Pressure 170/95 H Blood Pressure Mean 120 Pulse Ox 94 Positive well nourished and well developed General Appearance ED: well developed and NAD HEENT Reports moist mucous membranes normocephalic and atraumatic Eyes PERRL, EOMs intact bilaterally and conjunctivae normal General Eye ED: Yes normal appearance of both eyes Neck no lymphadenopathy and supple Neck Narrative: Reproducible right posterior neck tenderness there is no masses palpated. No erythema no vesicles of the skin. General: tenderness Chest Wall Chest: Negative for tenderness Resp normal respiratory effort and normal air movement Effort and Inspection: symmetric chest movement; Negative for respiratory distress Cardio regular rate, regular rhythm and no murmurs Peripheral Pulses: pulses 2+ throughout GI normal to inspection, nondistended, normoactive bowel sounds and non-tender Palpation: Negative for guarding or rebound tenderness present Back/Spine no CVA tenderness and no thoracic nor lumbar tenderness Extremity normal to inspection General Extremety ED: Negative for edema or tenderness General Extremity: Negative for edema Neuro oriented x3 and no sensory deficits noted Sensorium / Orientation: awake and alert Skin no rashes or lesions noted and no wounds MDM MDM MDM Narrative Medical decision making narrative: Interventions / MDM: Differential diagnosis:Neck strain, bony mass lesion Diagnosis considered but do not suspect: N/A My EKG interpretation: N/A Imaging independently reviewed and interpreted by myself: 5 view cervical x-rays were performed, degenerative changes there is no bony masses noted. Also read by radiology. External documents reviewed: N/A Test considered but not ordered:N/A ED course: Patient exam concerns for cervical muscle strain no palpable mass of the soft tissue region. Facilitated positional muscle release was performed of the neck with improvement movement additional Valium was given. Due to his reported bony mass history, cervical films were obtained showed no masses degenerative changes were noted. Re-evaluation: stable,With improvement of symptoms and range of motion. Prescription for motrin and Valium was written for continued symptom control. Outpatient follow-up. All questions were answered. Disposition discussed with patient/family/significant other: Patient and significant other. Case discussed with consulting clinician: N/A This note was generated with [employer] dictation software. It may contain incorrect words, spelling, and punctuation that were not noted in checking the note before signing. Radiography Diagnostic Testing: Clinical Impression(s) from Imaging Studies Cervical Spine X-Ray 05/16/23 04:36 IMPRESSION: There is severe multilevel spondylosis more prominent at C4-5, C5-6 and C6-7. Electronically Signed: Juan M Glaser MD at 5:00 EDT Reading Location ID and State: [facility] / [place] Tel , Service support , Discharge Plan Triage Chief Complaint: Other, Pain/Inj ED Provider: Akbar Ryder Dx/Rx/DC Orders Clinical Impression: Sprain of cervical neck, Eosinophilic granuloma Instructions: ED Neck Sprain or Strain Prescriptions: New ibuprofen 600 mg tablet 600 mg PO Q6H PRN PRN (Reason: pain) Qty: 20 0RF diazepam [diazepam] 5 mg tablet 5 mg PO Q8 PRN (Reason: Muscle Spasm) Qty: 12 0RF No Action albuterol sulfate 90 mcg/actuation HFA aerosol inhaler 2 puff inhalation Q8H PRN (Reason: shortness of breath or wheezing) Qty: 8.5 1RF tamsulosin 0.4 mg capsule 0.4 mg PO QHS Qty: 30 3RF (DME) True Metrix Glucose Test Strip Strip See Rx Instructions .ROUTE .MEDSUPPLY Qty: 100 11RF Rx Instructions: USE TO CHECK BS TID AND PRN (DME) handicap placard See Rx Instructions .Route .MEDSUPPLY Qty: 1 0RF Rx Instructions: length of time: 5 years diagnosis: emphysema J43.9 pantoprazole 40 mg tablet,delayed release (DR/EC) 40 mg PO DAILY Qty: 90 3RF levothyroxine 100 mcg tablet 100 mcg PO DAILY Qty: 90 1RF cholecalciferol (vitamin D3) 25 mcg (1,000 unit) capsule 25 mcg PO DAILY metformin 500 mg tablet extended release 24hr 500 mg PO BID Qty: 180 3RF Primary Care Provider: Elizabeth Costa Referrals: Elizabeth Costa MD [Primary Care Provider] - 1 Week if not improving Activity Restrictions/Additional Instructions: X-ray with no bony lesions degenerative changes noted. Take medications as prescribed. Follow-up with your doctor. Disposition Disposition: Home, Self Care Discharge Date/Time: 05/16/23 05:41
[2023-05-16] MEDS: diazePAM 5 MG Tablet PO (04:39)
== END 2023-05-16 05:41 | disposition home or self-care (01) ==
PROVIDERS: Emergency Provider Emergency Medicine; PCP Internal Medicine; Visit Provider Emergency Medicine
DX: S13.4XXA Sprain of ligaments of cervical spine, initial encounter (principal); L92.2 Granuloma faciale [eosinophilic granuloma of skin]; Z85.830 Personal history of malignant neoplasm of bone; Z90.49 Acquired absence of other specified parts of digestive tract; F17.210 Nicotine dependence, cigarettes, uncomplicated
CPT/HCPCS: 72040; 99283

== ENCOUNTER → 2023-09-01 | Outpatient (CLI) | payer MEDICARE, MEDICAID, SELFPAY ==
[2023-09-01 11:37] LABS: Absolute Lymphocyte Count 2.22 X10^3/uL (0.83-4.51); Absolute Neutrophil Count 5.5 X10^3/uL (2.0-7.7); Basophil# 0.08 X10^3/uL; Basophil% 0.9 % (0-1); Eosinophil# 0.32 X10^3/uL; Eosinophils% 3.5 % (0-5); Hematocrit 47.2 % (40-54); Hemoglobin 15.7 g/dL (13.0-16.5); Lymphocyte # 2.22 X10^3/ul (0.83-4.51); Lymphocyte % 24.4 % (19-41); Mean Corp Hgb Conc 33.3 g/dL (32-36); Mean Corpuscular Hgb 29.3 pg (27.0-32.0); Mean Corpuscular Volume 88.2 fL (80-94); Mean Platelet Vol. 8.9 fl (6.2-12.0); Monocyte# 0.86 X10^3/uL; Monocyte% 9.5 % (0-10); NRBC Flagged by Analyzer 0 % (0-5); Neutrophil # 5.46 X10^3/uL (2.7-7.7); Neutrophil % 59.9 % (47-70); Platelet Count 246 K/mm3 (150-450); RBC Distribution Width CV 15.1 % (11.6-14.6); RBC Distribution Width SD 48.7 fl (35.1-43.9); Red Blood Count 5.35 M/mm3 (4.6-6.2); White Blood Count 9.1 K/mm3 (4.4-11.0)
[2023-09-01 12:11] LABS: Hemoglobin A1c 6.1 % (3.8-5.6)
[2023-09-01 12:13] LABS: Vitamin D,25 Hydroxy 21.7 ng/mL
[2023-09-01 12:32] LABS: ALB/GLOB Ratio 0.9 RATIO (0.9-2.4); AST(SGOT) 28 U/L (15-37); Alanine Aminotransfer ALT/SGPT 56 U/L (16-61); Albumin, Serum 3.4 g/dL (3.2-5.0); Alkaline Phosphatase 113 U/L (45-117); Anion Gap 6 (5-15); BUN 19 mg/dL (7-18); BUN/Creat Ratio 21.5 RATIO (10-20); Calcium,Total 8.9 mg/dL (8.5-10.1); Chloride 105 mmol/L (98-107); Cholesterol 200 mg/dL (200); Creatinine, Serum 0.88 mg/dL (0.70-1.30); EST Glomerular Filtration Rate 92 mL/min (>60); Est Glom Filt Rate - Afr Amer 111 mL/min (>60); Free T3 2.5 pg/mL (2.18-3.98); Globulin 3.8 g/dL (2.2-4.2); Glucose 225 mg/dL (74-106); High Density Lipoprotein 36 mg/dL; Potassium 4.4 mmol/L (3.5-5.1); Protein, Total 7.2 g/dL (6.4-8.2); Sodium Level 138 mmol/L (136-145); T4 Free Direct 0.84 ng/dL (0.76-1.46); Triglycerides 762 mg/dL
== END | disposition home or self-care (01) ==
PROVIDERS: PCP Internal Medicine; Referring Provider Internal Medicine; Visit Provider Internal Medicine
DX: J43.9 Emphysema, unspecified (principal); E11.9 Type 2 diabetes mellitus without complications; Z98.0 Intestinal bypass and anastomosis status; E03.9 Hypothyroidism, unspecified; E55.9 Vitamin D deficiency, unspecified; Z13.220 Encounter for screening for lipoid disorders
CPT/HCPCS: 36415; 80053; 80061; 82306; 83036; 84439; 84443; 84481; 85025

== ENCOUNTER 2024-05-04 08:06 | Emergency (ER) | payer MEDICARE, MEDICAID, SELFPAY ==
[2024-05-04] VITALS (8 sets, daily range): BP systolic 122–134; BP diastolic 81–95; PULSE 69–80; RESP 16–19; TEMP 36.4–36.9; O2SAT 94–98; BMI 33.0
--- NOTE | 2024-05-04 08:36 | EDS_ITS ---
HPI History of Present Illness Chief Complaint: Shortness of Breath Informant: patient Onset/Context/Timing Onset: Weeks Context: gradual Timing: Continuous Quality: Positive for Dyspnea on exertion Worsened by: Exertion Relieved by: Rest Associated Symptoms cough, fever, subjective and white sputum; Negative for rhinorrhea, post nasal drip, ear pain, sore throat, chills, sweats, clear sputum, yellow sputum or green sputum Narrative Narrative: Patient presents with shortness of breath that has been getting worse over the past couple weeks. Patient states that he has been having shortness of breath with exertion over the past couple weeks. Patient admits to a cough with some white sputum. Patient admits to some subjective fevers. Patient also admits to some diffuse chest pain. Patient describes it as a pressure. Patient also states his mouth has been dry over the past couple weeks. Patient states he has been drinking more fluids because of this. Patient states he has been urinating more frequently. Patient states he has had some blurry vision. Patient denies any nausea or vomiting. Patient denies any abdominal pain. Patient states he has stopped taking his anxiety medicine over the past 2 weeks. Patient states he also stopped taking his thyroid medication for the last 2 weeks. Patient states that his glucometer has been broken recently and he has been unable to check his blood sugars at home. PE Risk Factors: Negative for Cancer, OCP + Smoking + > 35, Prior DVT or PE, Recent immobilization, Recent surgery or Recent travel [facility] Medical History Pancreatic tumor Eosinophilic granuloma of bone Arthritis or polyarthritis, rheumatoid Neuropathy Home Medications ?Medication ?Instructions ?Recorded ?Last Taken ?Type blood sugar diagnostic (True #100 ea 12/06/21 Unknown Rx Metrix Glucose Test Strip) handicap placard #1 ea 04/27/22 Unknown Rx pantoprazole 40 mg tablet,delayed 40 mg PO DAILY #90 tabs 12/16/22 Unknown Rx release albuterol sulfate 90 mcg/actuation 2 puff inhalation Q8H PRN 01/04/23 Unknown Rx aerosol inhaler shortness of breath or wheezing #8.5 grams tamsulosin 0.4 mg capsule 0.4 mg PO QHS #30 caps 01/04/23 Unknown Rx cholecalciferol (vitamin D3) 25 25 mcg PO DAILY 01/23/23 Unknown History mcg (1,000 unit) capsule diazepam 5 mg tablet 5 mg PO Q8 PRN Muscle Spasm #12 05/16/23 Unknown Rx tabs ibuprofen 600 mg tablet 600 mg PO Q6H PRN PRN pain #20 05/16/23 Unknown Rx TABLETS levothyroxine 100 mcg tablet 100 mcg PO DAILY #90 tabs 08/08/23 Unknown Rx metformin 500 mg tablet,extended 500 mg PO BID 05/04/24 Unknown History release 24 hr Allergy/AdvReac Type Severity Reaction Status Date / Time Gadolinium-MRI Contrast Allergy Anaphylaxis Verified 05/04/24 08:07 Medium (DYE) Penicillins Allergy Hives Verified 05/04/24 08:07 Family History Father Cancer Father Diabetes Mother Diabetes Surgical History Bowel obstruction S/P appendectomy Social History Smoking Status: Current every day smoker tobacco type: cigarettes alcohol intake: never substance use type: does not use ROS ROS ED Constitutional Constitutional ED: Reports fever(s); Denies chills Eyes Eyes: Reports blurry vision; Denies diplopia ENT ENT ED: Denies rhinorrhea or sore throat Cardiovascular Cardiovascular: Reports chest pain; Denies palpitations Respiratory/Chest Respiratory/Chest: Reports cough and dyspnea Gastrointestinal Gastrointestinal: Denies nausea or vomiting Genitourinary Genitourinary ED: Reports urinary frequency; Denies dysuria or hematuria Musculoskeletal Musculoskeletal: Reports neck pain; Denies back pain Integumentary Denies abscess or rash Neurologic Neurologic: Reports headache(s); Denies weakness Endocrine Endocrinology: Reports polydipsia and polyuria Allergic/Immunologic Allergic/Immunologic ED: Denies mouth swelling or urticaria EXAM Physical Exam Const Vital Signs: 05/04/24 08:08 05/04/24 08:40 05/04/24 08:42 Temperature 97.6 F L 97.6 F L Temperature Source Temporal Oral Pulse Rate 80 72 Respiratory Rate 18 19 H Respiratory Effort Short of Breath Labored Respiratory Depth Deep Respiratory Pattern Tachypnea Blood Pressure 134/95 H 128/90 H Blood Pressure Mean 108 102 Pulse Ox 96 96 Oxygen Delivery Method Room Air Room Air Room Air 05/04/24 09:50 05/04/24 10:06 05/04/24 12:10 Temperature 97.5 F L Temperature Source Oral Pulse Rate 72 73 69 Respiratory Rate 16 19 H 16 Respiratory Effort Respiratory Depth Respiratory Pattern Blood Pressure 122/83 H 134/87 H 122/81 H Blood Pressure Mean 96 102 94 Pulse Ox 96 94 98 Oxygen Delivery Method Room Air Room Air Positive well nourished and well developed General Appearance ED: well developed and NAD HEENT Reports dry mucous membranes Mouth ED: Yes dry mucous membranes Mouth: dry mucous membranes Neck supple and no meningeal signs Resp normal respiratory effort and clear to auscultation bilaterally Cardio regular rate and regular rhythm GI non-tender and non-distended Palpation: soft Neuro oriented x3, CN's II-XII intact bilaterally and no sensory deficits noted Lagro Coma Scale: document GCS findings Spontaneous Obeys Commands Oriented 15 Sensorium / Orientation: alert Speech: speech normal Motor Exam: strength 5/5 throughout Psych mental status grossly normal MDM MDM MDM Narrative Medical decision making narrative: Differential diagnosis includes DKA, electrolyte abnormality, hypothyroidism, pneumonia, COPD exacerbation, cardiac dysrhythmia, cardiac ischemia, and infection. EKG will be obtained to assess for cardiac dysrhythmia and cardiac ischemia. Chest x-ray will be obtained to assess for pneumonia. CBC will be obtained to assess for leukocytosis and anemia. Basic metabolic profile will be obtained to assess for glucose, electrolyte abnormality, and renal function. Urinalysis will be obtained to assess for urinary tract infection and glucosuria. Serum acetone will be obtained to assess for DKA. TSH will be obtained to assess for hypothyroidism. Venous blood gas will be obtained to assess for acid-base status. Lab Data Attestation: I reviewed the patient's lab results. Lab results narrative: CBC was reviewed and was within normal limits. Basic metabolic profile was reviewed. Glucose was elevated at 645, sodium was 126, and chloride was 95. BUN was slightly elevated at 19. Anion gap was normal at 10. CO2 was normal at 21. TSH was reviewed and was elevated at 12.2. Urinalysis was reviewed. There is no evidence of urinary tract infection or hematuria. Urine glucose was elevated at 1000. Serum acetones were reviewed and were negative. Initial BGT was obtained and was greater than 500. BGT was repeated after insulin and was improved to 387. Venous blood gas was reviewed. pH was normal at 7.37. Labs: Laboratory Results - last 24 hr 05/04/24 05/04/24 05/04/24 08:28 08:47 10:12 WBC 8.9 RBC 5.48 Hgb 15.7 Hct 47.0 MCV 85.8 MCH 28.6 MCHC 33.4 RDW Std Deviation 46.0 H RDW Coeff of Martínez 14.6 Plt Count 207 MPV 9.4 Immature Gran % (Auto) 1.300 H Neut % (Auto) 67.3 Lymph % (Auto) 16.5 L Bennett % (Auto) 11.8 H Eos % (Auto) 2.1 Baso % (Auto) 1.0 Absolute Neuts (auto) 6.0 Absolute Lymphs (auto) 1.47 Nucleated RBC % 0 Sodium 126 L Potassium 5.0 Chloride 95 L Carbon Dioxide 21.0 Anion Gap 10 BUN 19 H Creatinine 1.24 Estim Creat Clear Calc 69.71 Est GFR (MDRD) Af Amer 75 Est GFR (MDRD) Non-Af 62 BUN/Creatinine Ratio 15.3 Glucose 645 H* Calcium 9.0 TSH 12.20 H Urine Color Yellow Urine Clarity Clear Urine pH 6.0 Ur Specific [place] 1.015 Urine Protein Negative Urine Glucose (UA) 1000 H Urine Ketones Negative Urine Occult Blood Negative Urine Nitrite Negative Urine Bilirubin Negative Urine Urobilinogen Normal Ur Leukocyte Esterase Negative Urine RBC 0 SEEN Urine WBC 0 SEEN Ur Squamous Epith Cells 0 SEEN Urine Bacteria 0 SEEN Urine Mucus 0 SEEN Acetone Level NEGATIVE POC Glucose > 500 H* 05/04/24 11:19 WBC RBC Hgb Hct MCV MCH MCHC RDW Std Deviation RDW Coeff of Martínez Plt Count MPV Immature Gran % (Auto) Neut % (Auto) Lymph % (Auto) Bennett % (Auto) Eos % (Auto) Baso % (Auto) Absolute Neuts (auto) Absolute Lymphs (auto) Nucleated RBC % Sodium Potassium Chloride Carbon Dioxide Anion Gap BUN Creatinine Estim Creat Clear Calc Est GFR (MDRD) Af Amer Est GFR (MDRD) Non-Af BUN/Creatinine Ratio Glucose Calcium TSH Urine Color Urine Clarity Urine pH Ur Specific [place] Urine Protein Urine Glucose (UA) Urine Ketones Urine Occult Blood Urine Nitrite Urine Bilirubin Urine Urobilinogen Ur Leukocyte Esterase Urine RBC Urine WBC Ur Squamous Epith Cells Urine Bacteria Urine Mucus Acetone Level POC Glucose 387 H ABG Data ABG results: ABG 05/04/24 09:06 Specimen Type NIRALI Sample Site Not entered VBG pH 7.37 VBG pO2 43 H VBG HCO3 22 VBG Total CO2 23 VBG O2 Sat (Calc) 77 H VBG Base Excess -3 L POC Mix VBG pCO2 Pt Tmp 38.7 L O2 Delivery Device Not entered Radiography Chest X-Ray - ED: 2 View, Read by ED Physician, Read by Radiologist, No Acute Disease and Chronic Changes Diagnostic Testing: Clinical Impression(s) from Imaging Studies Chest X-Ray 05/04/24 08:48 IMPRESSION: Chronic interstitial changes in both lung solitario without a superimposed process or significant change since the previous study Electronically Signed: Vick Schumacher MD at 9:28 EDT , PA and lateral chest x-ray was obtained. There are 2 views. On my independent interpretation, lung solitario show chronic changes bilaterally. There is normal cardiac silhouette. Bony thorax is normal. There is no acute process noted. Radiologist also interpreted the x-ray and agrees. EKG Initial EKG: Attestation: I personally reviewed and interpreted this EKG as follows: Interpretation: Sinus Rhythm (79) and No Acute Injury Pattern Comments: EKG was obtained. On my independent interpretation, it showed a normal sinus rhythm with a rate of 79. IL interval, QRS interval, and QTc intervals were all normal. Forgan was normal. There are no acute ST or T wave changes. Prior EKG tracings: available for review Prior: Unchanged (07/31/2016) Treatment and Re-Evaluation :: Smoking cessation was discussed. Patient was given IV fluids. Patient was given subcutaneous insulin here. Serum osmolarity was calculated and was 295. Patient was advised of his findings. Patient was ambulated in the emergency department. Patient oxygen saturations stayed above 95% with ambulation. Repeat BGT was obtained and was 439. Patient was given a another dose of insulin. Patient was instructed to continue to drink fluids. Patient was instructed to resume his levothyroxine. Patient was given a dose here. Patient was instructed to follow-up with his primary care physician in 3 to 5 days. Patient was instructed to return if worse in any way. Patient understood and was agreeable with the plan. All questions were answered. Discharge Plan Triage Chief Complaint: Shortness of Breath ED Provider: Vick Alicia Dx/Rx/DC Orders Clinical Impression: Hyperglycemia, Diabetes mellitus, Tobacco abuse, Hypothyroidism Instructions: ED Diabetic Hyperglycemia, ED Hypothyroidism Prescriptions: No Action albuterol sulfate 90 mcg/actuation HFA aerosol inhaler 2 puff inhalation Q8H PRN (Reason: shortness of breath or wheezing) Qty: 8.5 1RF tamsulosin 0.4 mg capsule 0.4 mg PO QHS Qty: 30 3RF ibuprofen 600 mg tablet 600 mg PO Q6H PRN PRN (Reason: pain) Qty: 20 0RF diazepam [diazepam] 5 mg tablet 5 mg PO Q8 PRN (Reason: Muscle Spasm) Qty: 12 0RF metformin 500 mg tablet extended release 24 hr 500 mg PO BID (DME) True Metrix Glucose Test Strip Strip See Rx Instructions .ROUTE .MEDSUPPLY Qty: 100 11RF Rx Instructions: USE TO CHECK BS TID AND PRN (DME) handicap placard See Rx Instructions .Route .MEDSUPPLY Qty: 1 0RF Rx Instructions: length of time: 5 years diagnosis: emphysema J43.9 pantoprazole 40 mg tablet,delayed release (DR/EC) 40 mg PO DAILY Qty: 90 3RF cholecalciferol (vitamin D3) 25 mcg (1,000 unit) capsule 25 mcg PO DAILY levothyroxine 100 mcg tablet 100 mcg PO DAILY Qty: 90 3RF Primary Care Provider: Elizabeth Costa Referrals: Elizabeth Costa MD [Primary Care Provider] - 3-5 Days Print Language: Citizen Of [place] Disposition Disposition: Home, Self Care
--- NOTE | 2024-05-04 08:48 | EKG12_ITS ---
Test Reason : SOB Blood Pressure : / mmHG Vent. Rate : 079 BPM Atrial Rate : 079 BPM P-R Int : 158 ms QRS Dur : 084 ms QT Int : 380 ms P-R-T Axes : 061 -11 069 degrees QTc Int : 435 ms Normal sinus rhythm Normal ECG Confirmed by PÉREZ ROCHE, SAMUEL ([id number]), offline editor MOLLY CHAUHAN ([id number]) on 05/06/2024 10:45:37 AM Referred By: MARLIN Confirmed By:SAMUEL ORTEZ MD
--- NOTE | 2024-05-04 08:48 | RAD_ITS ---
STUDY: X-RAY CHEST REASON FOR EXAM: Male, 63 years old. Dyspnea TECHNIQUE: PA and lateral views of the chest. COMPARISON: 08/29/2022 FINDINGS: EKG leads overlie the chest Chronic interstitial changes in both lung solitario with stable postsurgical changes in the right upper lobe. No superimposed infiltrate or effusion. Normal size heart. Normal mediastinum and gabriel. Normal visualized pulmonary arteries. Normal visualized aortic arch and descending thoracic aorta. Normal visualized thoracic spine. Normal visualized ribs, clavicles, and shoulders. There is no demonstrated abnormality of the visualized soft tissue structures of the upper abdomen. RAD/Chest PA and Lateral IMPRESSION: Chronic interstitial changes in both lung solitario without a superimposed process or significant change since the previous study Electronically Signed: Vick Schumacher MD at 9:28 EDT ,
[2024-05-04 08:49] LABS: Bedside Glucose > 500 mg/dL (74-106)
[2024-05-04] MEDS: 0.9% Normal Saline (1000mL) 1,000 ML 1000 ML IV ×2 (08:51→09:52)
[2024-05-04 08:59] LABS: Absolute Lymphocyte Count 1.47 X10^3/uL (0.83-4.51); Basophil# 0.09 X10^3/uL; Eosinophil# 0.19 X10^3/uL; Eosinophils% 2.1 % (0-5); Hemoglobin 15.7 g/dL (13.0-16.5); Lymphocyte # 1.47 X10^3/ul (0.83-4.51); Lymphocyte % 16.5 % (19-41); Mean Corp Hgb Conc 33.4 g/dL (32-36); Mean Corpuscular Hgb 28.6 pg (27.0-32.0); Mean Corpuscular Volume 85.8 fL (80-94); Mean Platelet Vol. 9.4 fl (6.2-12.0); Monocyte# 1.05 X10^3/uL; Monocyte% 11.8 % (0-10); NRBC Flagged by Analyzer 0 % (0-5); Neutrophil # 6.01 X10^3/uL (2.7-7.7); Neutrophil % 67.3 % (47-70); Platelet Count 207 K/mm3 (150-450); RBC Distribution Width CV 14.6 % (11.6-14.6); Red Blood Count 5.48 M/mm3 (4.6-6.2); White Blood Count 8.9 K/mm3 (4.4-11.0)
[2024-05-04 09:10] LABS: Blood Gas Specimen Type VEN; O2 Delivery Device Not entered; SITE Not entered; VBG BASE EXCESS -3 mmol/L (-1.0-3.5); VBG Bicarbonate 22 mmol/L (22-26); VBG PO2 43 mmHg (25-40); VBG SO2 77 % (50-70); VBG TCO2 23 mmol/L (23-33); VBG pCO2 38.7 mmHg (41-51); VBG pH 7.37 (7.32-7.42)
[2024-05-04 09:36] LABS: Anion Gap 10 (5-15); BUN 19 mg/dL (7-18); BUN/Creat Ratio 15.3 RATIO (10-20); Chloride 95 mmol/L (98-107); Creatinine, Serum 1.24 mg/dL (0.70-1.30); EST Glomerular Filtration Rate 62 mL/min (>60); Est Glom Filt Rate - Afr Amer 75 mL/min (>60); Estimated Creatinine Clearance 69.71 ml/min; Glucose 645 mg/dL (74-106); Sodium Level 126 mmol/L (136-145)
[2024-05-04 10:14] LABS: Bacteria 0 SEEN /hpf (None Seen); Mucous, Urine 0 SEEN /hpf (<or=2+); Red Blood Cells-Urine 0 SEEN /hpf (0-5); Squamous Epithelial Cells - UA 0 SEEN /hpf (0-5); White Blood Cells 0 SEEN /hpf (0-5)
[2024-05-04 10:16] LABS: Color, Urine Yellow (Yellow); Glucose, Dipstick 1000 mg/dl (Normal); Ketone-Dipstick Negative (Negative); Leukocyte Esterase-Dipstick Negative /ul (Negative); Nitrite-Dipstick Negative (Negative); Occult Blood-Urine Negative /ul (Negative); Protein-Dipstick Negative (Negative); Specific Gravity, Urine 1.015 (1.002-1.030); Urine Bilirubin Dipstick Negative (Negative); Urine Clarity Clear (Clear); Urine Urobilinogen Normal (Normal)
[2024-05-04] MEDS: Insulin Lispro 100 UNIT/ML INSULN.PEN 15 UNIT SC (10:20)
[2024-05-04 11:37] LABS: Bedside Glucose 387 mg/dL (74-106)
[2024-05-04 12:40] LABS: Bedside Glucose 439 mg/dL (74-106)
[2024-05-04] MEDS: Insulin Lispro 100 UNIT/ML INSULN.PEN 10 UNIT SC (12:40)
[2024-05-04] MEDS: Levothyroxine 100 MCG Tablet PO (13:15)
[2024-05-04 14:39] LABS: Bedside Glucose 289 mg/dL (74-106)
== END 2024-05-04 14:42 | disposition home or self-care (01) ==
PROVIDERS: Emergency Provider Emergency Medicine; PCP Internal Medicine; Visit Provider Emergency Medicine
DX: E11.65 Type 2 diabetes mellitus with hyperglycemia (principal); E11.40 Type 2 diabetes mellitus with diabetic neuropathy, unspecified; E03.9 Hypothyroidism, unspecified; F41.9 Anxiety disorder, unspecified; F17.210 Nicotine dependence, cigarettes, uncomplicated; R07.9 Chest pain, unspecified; R51.9 Headache, unspecified; M54.2 Cervicalgia; R05.9 Cough, unspecified
CPT/HCPCS: 71046; 80048; 81001; 82009; 82803; 82962; 84443; 85025; 93005; 96360; 96361; 99284; J7030

== ENCOUNTER 2024-05-04 19:59 | Emergency (ER) | payer MEDICARE, MEDICAID, SELFPAY ==
[2024-05-04] VITALS (9 sets, daily range): BP systolic 138–146; BP diastolic 82–94; PULSE 32–92; RESP 16–28; TEMP 36.2–36.9; O2SAT 87–95; BMI 34.1
--- NOTE | 2024-05-04 20:07 | EKG12_ITS ---
Test Reason : SOB Blood Pressure : / mmHG Vent. Rate : 089 BPM Atrial Rate : 089 BPM P-R Int : 152 ms QRS Dur : 084 ms QT Int : 348 ms P-R-T Axes : 066 001 061 degrees QTc Int : 423 ms Normal sinus rhythm Nonspecific ST abnormality Abnormal ECG Confirmed by PÉREZ ROCHE, SAMUEL ([id number]), content editor MOLLY CHAUHAN ([id number]) on 05/06/2024 10:45:54 AM Referred By: Confirmed By:SAMUEL ORTEZ MD
--- NOTE | 2024-05-04 20:08 | ED.VIS.DYS ---
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, rheumatoid Neuropathy Home Medications ?Medication ?Instructions ?Recorded ?Last Taken ?Type blood sugar diagnostic (True #100 ea 12/06/21 Unknown Rx Metrix Glucose Test Strip) handicap placard #1 ea 04/27/22 Unknown Rx albuterol sulfate 90 mcg/actuation 2 puff inhalation Q8H PRN 01/04/23 Unknown Rx aerosol inhaler shortness of breath or wheezing #8.5 grams diazepam 5 mg tablet 5 mg PO Q8 PRN Muscle Spasm #12 05/16/23 Unknown Rx tabs ibuprofen 600 mg tablet 600 mg PO Q6H PRN PRN pain #20 05/16/23 Unknown Rx TABLETS levothyroxine 100 mcg tablet 100 mcg PO DAILY #90 tabs 08/08/23 Unknown Rx metformin 500 mg tablet,extended 500 mg PO BID 05/04/24 Unknown History release 24 hr Allergy/AdvReac Type Severity Reaction Status Date / Time Gadolinium-MRI Contrast Allergy Anaphylaxis Verified 05/04/24 08:07 Medium (DYE) Penicillins Allergy Hives Verified 05/04/24 08:07 Family History Father Cancer Father Diabetes Mother Diabetes Surgical History Bowel obstruction S/P appendectomy Social History Smoking Status: Current every day smoker tobacco type: cigarettes alcohol intake: never substance use type: does not use EXAM Physical Exam Const Vital Signs: 05/04/24 20:00 05/04/24 20:11 05/04/24 20:22 Temperature 97.2 F L Temperature Source Temporal Pulse Rate 92 90 Respiratory Rate 25 H 18 Respiratory Effort Normal Respiratory Depth Respiratory Pattern Normal Blood Pressure 146/89 H 146/89 H Blood Pressure Mean 108 108 Pulse Ox 94 95 Oxygen Delivery Method Room Air Room Air Oxygen Flow Rate (L/min) 05/04/24 20:23 05/04/24 20:46 05/04/24 20:56 Temperature 98.4 F Temperature Source Temporal Pulse Rate 84 91 Respiratory Rate 19 H 28 H Respiratory Effort Normal Respiratory Depth Normal Respiratory Pattern Normal Blood Pressure 139/82 H Blood Pressure Mean 101 Pulse Ox 88 Oxygen Delivery Method Room Air Oxygen Flow Rate (L/min) 05/04/24 21:01 05/04/24 21:25 05/04/24 21:25 Temperature Temperature Source Pulse Rate 90 32 L Respiratory Rate 25 H 16 22 H Respiratory Effort Respiratory Depth Respiratory Pattern Blood Pressure 138/83 H Blood Pressure Mean 101 Pulse Ox 94 87 94 Oxygen Delivery Method Nasal Cannula Nasal Cannula Nasal Cannula Oxygen Flow Rate (L/min) 2 2 2 05/04/24 21:42 05/04/24 23:00 05/05/24 00:00 Temperature 98.1 F 98.1 F 98.1 F Temperature Source Oral Oral Oral Pulse Rate 91 87 80 Respiratory Rate 26 H 26 H 27 H Respiratory Effort Respiratory Depth Respiratory Pattern Blood Pressure 146/84 H 139/94 H 134/86 H Blood Pressure Mean 104 109 102 Pulse Ox 95 92 91 Oxygen Delivery Method Nasal Cannula Room Air Room Air Oxygen Flow Rate (L/min) 2 MDM MDM MDM Narrative Medical decision making narrative: HISTORY OF PRESENT ILLNESS: 63-year-old male presents with shortness of breath the second time today. He notes he is short of breath. Notes shortness breath worsen as he got home to the emergency department. States he has dry mouth and difficulty swallowing as well as shortness of breath. Notes history of COPD but denies history of PE or VTE. The patient denies recent surgery in the last 4 weeks or immobilization in the last 3 days, denies previous diagnosis of DVT or PE, hemoptysis, unilateral leg swelling or malignancy with treatment the last 6 months or palliative. No estrogen use noted. Earlier today he was seen had an elevated blood sugar of 645, normal anion gap, normal bicarb. He had no evidence of urinary tract infection, there is no evidence of respiratory acidosis, REVIEW OF SYSTEMS: Pertinent positives: Shortness of breath Pertinent negatives: Chest pain, leg swelling, bleeding diathesis PHYSICAL EXAM: Nursing triage notes reviewed, Vital signs reviewed Constitutional: please see mdm HENT: MMM Eyes: Pupils equal round and reactive to light, Extraocular muscles intact Neck: No stridor, no JVD, full neck ROM Lungs: Clear to auscultation, No wheezing or rales. No increased work of breathing, no conversational dyspnea, no accessory muscle use, no nasal flaring. No respiratory distress noted Heart: Regular rate and rhythm, No murmurs, No rubs and No gallops, 2+ distal pulses (radial, femoral, posterior tibial) in all extremities Abdomen: Soft, there is no tenderness, rigidity, rebound or guarding, no obvious peritoneal signs, no palpable pulsatile abdominal masses, no auscultated abdominal bruit : No CVAT Extremities: No edema Neuro: No focal neurological deficits, cranial nerves II through XII intact, 5/5 strength in all extremities. Intact sensation to light touch in all extremities, 2+ reflexes bilateral patella tendons. Normal gait. No ataxia. Skin: No rash or lesions noted MEDICAL DECISION MAKING: Chief Complaint: Shortness of breath External records reviewed: Reviewed ED visit from earlier today. Reviewed labs images from this visit Factors affecting care: COPD, type 2 diabetes, hyperglycemia Social determinants of health: Tobacco use History obtained from others: n EMS Consults: none MDM Narrative: Patient was initially tachypneic otherwise hemodynamically stable afebrile and nontoxic-appearing I considered the following differential diagnosis: DKA, COPD exacerbation, ACS, arrhythmia, anemia, electrolyte disturbance, pneumonia, pneumothorax, PE I obtained a broad lab and imaging workup to further elucidate etiology. Complaint specifically rule out the above mentioned diagnoses any signs of endorgan damage. ALL IMAGES (IF OBTAINED) HAVE BEEN PERSONALLY REVIEWED AND INTERPRETED BY MYSELF. EKG with normal sinus rhythm, normal axis, normal intervals, no STEMI, similar to comparison EKG from earlier on 05/04/2024 CBC without leukocytosis, severe anemia, no thrombocytopenia. VBG without evidence of respiratory or metabolic acidosis, BMP with pseudohyponatremia, no other severe electrolyte maladies, no anion gap, bicarb greater than 15 noted severe hyperglycemia 744 High-sensitivity troponin is negative, no evidence of myocardial ischemia BNP within the limit suggestive no evidence of heart failure Serum acetone negative I have personally reviewed the patient's chest x-ray. Chest x-ray is unremarkable for pulmonary edema, pneumothorax, pneumonia or focal cardiopulmonary abnormality. Patient was given a total of 20 units of IV insulin his blood sugars went from 744 to 475. He is deemed appropriate discharge The synthesis of the patient's history, physical exam, labs images suggest no acute life-limiting etiology pacifically no evidence of COPD exacerbation, PE, pneumothorax, pneumonia, ACS, arrhythmia. Patient was very anxious initially I suspect this has a large component to play in his presentations today The patient and/or family, caregivers express understanding. The patient and/or family, caregivers agrees with the plan. Shared decision making: I will have a discussion with the patient and or visitors regarding risk/benefits of further testing or admission. They will be made aware of of the risk/benefits inherent in this decision they will be given the opportunity to voice understanding. Total critical care time today provided was at least 0 minutes. This excludes separately billable procedures. Critical care time (if documented) is secondary to the patient having high probability of clinically significant/life threatening deterioration in the patient's condition which required my urgent intervention. Impression: 1. Dyspnea 2. Tachypnea 3. History of COPD 4. Hyperglycemia 5. Pseudohyponatremia 6. Poorly controlled type 2 diabetes Dispo: Discharge home This note was generated with [employer] dictation software. It may contain incorrect words, spelling, and punctuation that were not noted in review of the chart prior to signing. Lab Data Labs: Laboratory Results - last 24 hr 05/04/24 05/04/24 20:17 22:46 WBC 8.7 RBC 5.05 Hgb 14.6 Hct 44.1 MCV 87.3 MCH 28.9 MCHC 33.1 RDW Std Deviation 47.7 H RDW Coeff of Martínez 15.0 H Plt Count 187 MPV 9.5 Immature Gran % (Auto) 1.300 H Neut % (Auto) 67.7 Lymph % (Auto) 17.4 L [place] % (Auto) 10.9 H Eos % (Auto) 1.8 Baso % (Auto) 0.9 Absolute Neuts (auto) 5.9 Absolute Lymphs (auto) 1.52 Nucleated RBC % 0 Sodium 127 L Potassium 4.8 Chloride 96 L Carbon Dioxide 22.0 Anion Gap 9 BUN 18 Creatinine 1.22 Estim Creat Clear Calc 72.01 Est GFR (MDRD) Af Amer 77 Est GFR (MDRD) Non-Af 63 BUN/Creatinine Ratio 14.8 Glucose 744 H* Calcium 9.0 Troponin I High Sens 4 B-Natriuretic Peptide 5.7 Acetone Level NEGATIVE POC Glucose > 500 H* ABG Data ABG results: ABG 05/04/24 20:25 Specimen Type NIRALI Sample Site Not entered VBG pH 7.37 VBG pO2 61 H VBG HCO3 20 L VBG Total CO2 22 L VBG O2 Sat (Calc) 90 H VBG Base Excess -5 L POC Mix VBG pCO2 Pt Tmp 35.4 L O2 Delivery Device Room Air Radiography Diagnostic Testing: Clinical Impression(s) from Imaging Studies Chest X-Ray 05/04/24 20:34 IMPRESSION: Prominent interstitial markings, may be chronic however cannot exclude edema. Emphysema. Electronically Signed: Fartun Samaniego MD at 20:46 EDT , Discharge Plan Triage Chief Complaint: Shortness of Breath Other Complaint: Hyperglycemia ED Provider: Eduardo Stone Dx/Rx/DC Orders Instructions: ED COPD Flare Prescriptions: No Action albuterol sulfate 90 mcg/actuation HFA aerosol inhaler 2 puff inhalation Q8H PRN (Reason: shortness of breath or wheezing) Qty: 8.5 1RF ibuprofen 600 mg tablet 600 mg PO Q6H PRN PRN (Reason: pain) Qty: 20 0RF diazepam [diazepam] 5 mg tablet 5 mg PO Q8 PRN (Reason: Muscle Spasm) Qty: 12 0RF metformin 500 mg tablet extended release 24 hr 500 mg PO BID (DME) True Metrix Glucose Test Strip Strip See Rx Instructions .ROUTE .MEDSUPPLY Qty: 100 11RF Rx Instructions: USE TO CHECK BS TID AND PRN (DME) handicap placard See Rx Instructions .Route .MEDSUPPLY Qty: 1 0RF Rx Instructions: length of time: 5 years diagnosis: emphysema J43.9 levothyroxine 100 mcg tablet 100 mcg PO DAILY Qty: 90 3RF Primary Care Provider: Elizabeth Costa Referrals: Elizabeth Costa MD [Primary Care Provider] - Activity Restrictions/Additional Instructions: Thank you for trusting us with your care today! Given diagnosis COPD exacerbation elevated blood sugar. Please take Tylenol (2 pills, 650 mg), ibuprofen (2 pills, 400 mg) every 6 hours as needed for pain and fever control. Please return to the emergency department if your symptoms change or worsen. Please follow with your primary care physician for further outpatient evaluation and management. It is imperative you follow with your primary care physician for further diabetes management as an outpatient. It is important to consume a low carbohydrate diet. Is important to drink plenty of fluids. Print Language: Tunisian Disposition Disposition: Home, Self Care
[2024-05-04 20:29] LABS: Blood Gas Specimen Type VEN; O2 Delivery Device Room Air; SITE Not entered; VBG BASE EXCESS -5 mmol/L (-1.0-3.5); VBG Bicarbonate 20 mmol/L (22-26); VBG PO2 61 mmHg (25-40); VBG SO2 90 % (50-70); VBG TCO2 22 mmol/L (23-33); VBG pCO2 35.4 mmHg (41-51); VBG pH 7.37 (7.32-7.42)
--- NOTE | 2024-05-04 20:34 | RAD_ITS ---
INDICATION: Shortness of breath EXAMINATION/TECHNIQUE: X-RAY - XR Chest 1 View COMPARISON: May 14, 2024 FINDINGS: LINES/DEVICES: None. LUNGS: There are surgical sutures projecting over the right upper and midlung. There is stable scarring within the upper lungs. There are bilateral emphysematous changes. There are prominent interstitial markings. No pneumothorax. MEDIASTINUM AND CARDIOVASCULAR STRUCTURES: Cardiac silhouette not enlarged. Central airways and mediastinal contour are unremarkable. BONES AND SOFT TISSUES: Unremarkable. RAD/Chest 1 View (Portable) IMPRESSION: Prominent interstitial markings, may be chronic however cannot exclude edema. Emphysema. Electronically Signed: Fartun Samaniego MD at 20:46 EDT ,
[2024-05-04 20:37] LABS: Absolute Lymphocyte Count 1.52 X10^3/uL (0.83-4.51); Absolute Neutrophil Count 5.9 X10^3/uL (2.0-7.7); Basophil# 0.08 X10^3/uL; Basophil% 0.9 % (0-1); Eosinophil# 0.16 X10^3/uL; Eosinophils% 1.8 % (0-5); Hematocrit 44.1 % (40-54); Hemoglobin 14.6 g/dL (13.0-16.5); Lymphocyte # 1.52 X10^3/ul (0.83-4.51); Lymphocyte % 17.4 % (19-41); Mean Corp Hgb Conc 33.1 g/dL (32-36); Mean Corpuscular Hgb 28.9 pg (27.0-32.0); Mean Corpuscular Volume 87.3 fL (80-94); Mean Platelet Vol. 9.5 fl (6.2-12.0); Monocyte# 0.95 X10^3/uL; Monocyte% 10.9 % (0-10); NRBC Flagged by Analyzer 0 % (0-5); Neutrophil # 5.92 X10^3/uL (2.7-7.7); Neutrophil % 67.7 % (47-70); Platelet Count 187 K/mm3 (150-450); RBC Distribution Width SD 47.7 fl (35.1-43.9); Red Blood Count 5.05 M/mm3 (4.6-6.2); White Blood Count 8.7 K/mm3 (4.4-11.0)
[2024-05-04] MEDS: LORazepam 2 MG/ML Syringe IV (20:42)
[2024-05-04] MEDS: Ipratropium/Albuterol Sulfate 3 ML AMPUL.NEB INHALATION (20:44)
[2024-05-04 20:51] LABS: Anion Gap 9 (5-15); BUN 18 mg/dL (7-18); BUN/Creat Ratio 14.8 RATIO (10-20); Chloride 96 mmol/L (98-107); Creatinine, Serum 1.22 mg/dL (0.70-1.30); EST Glomerular Filtration Rate 63 mL/min (>60); Est Glom Filt Rate - Afr Amer 77 mL/min (>60); Estimated Creatinine Clearance 72.01 ml/min; Glucose 744 mg/dL (74-106); Potassium 4.8 mmol/L (3.5-5.1); Sodium Level 127 mmol/L (136-145); Troponin-I HS 4 pg/mL (3.0-78.0)
[2024-05-04 22:07] LABS: BNP,B-Type NATRIURETIC PEPTIDE 5.7 pg/mL (0-100)
[2024-05-04 23:11] LABS: Bedside Glucose > 500 mg/dL (74-106)
[2024-05-05] VITALS: BP 134/86; PULSE 80; RESP 27; TEMP 36.7; O2SAT 91
[2024-05-05 00:28] VITALS: BP 136/88; PULSE 89; RESP 26; TEMP 36.7; O2SAT 92
[2024-05-05 00:30] LABS: Bedside Glucose 475 mg/dL (74-106)
== END 2024-05-05 00:29 | disposition home or self-care (01) ==
PROVIDERS: Emergency Provider Emergency Medicine; PCP Internal Medicine; Visit Provider Emergency Medicine
DX: E11.65 Type 2 diabetes mellitus with hyperglycemia (principal); J44.9 Chronic obstructive pulmonary disease, unspecified; E11.40 Type 2 diabetes mellitus with diabetic neuropathy, unspecified; F17.210 Nicotine dependence, cigarettes, uncomplicated
CPT/HCPCS: 71045; 80048; 82009; 82803; 82962; 83880; 84484; 85025; 93005; 94640; 99285; A4216

== ENCOUNTER 2024-05-08 15:36 | Inpatient (IN) | payer MEDICARE, MEDICAID, SELFPAY ==
[2024-05-08 15:37] VITALS: BP 135/83; PULSE 80; RESP 16; TEMP 36.3; O2SAT 99
[2024-05-08 15:38] VITALS: BMI 33.9
--- NOTE | 2024-05-08 16:11 | EKG12_ITS ---
Test Reason : Blood Pressure : / mmHG Vent. Rate : 074 BPM Atrial Rate : 074 BPM P-R Int : 164 ms QRS Dur : 092 ms QT Int : 384 ms P-R-T Axes : 054 -09 079 degrees QTc Int : 426 ms Normal sinus rhythm Normal ECG Confirmed by Garrett Orozco ([id number]), editor news TRINH BROWN ([id number]) on 05/09/2024 9:44:45 AM Referred By: [id number] Confirmed By:Garrett Orozco
--- NOTE | 2024-05-08 16:11 | EX.ED.DYSGE1 ---
HPI History of Present Illness Chief Complaint: Hyperglycemia Informant: patient Narrative Narrative: 63-year-old male presenting with hyperglycemia. Diagnosed with diabetes several years ago around the time when he had his pancreas removed, states that he has been having a lot of trouble regulating his blood sugars. Recently switched PCPs, he saw Dr. Moreno his new PCP for the first time today, after being in the ER 3 days ago for hyperglycemia over 600, he states they brought it down to the 400 level and discharged him to continue his metformin and he started a new medication this morning but then was referred here because his sugar is so high and he is feeling very poorly. He states his dyspnea has been since . He does have a cough that is nonproductive denies any fevers or chills. [facility] Medical History (Updated 05/08/24 @ 17:[address] 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, rheumatoid Neuropathy Home Medications ?Medication ?Instructions ?Recorded ?Last Taken ?Type blood sugar diagnostic (True #100 ea 12/06/21 Unknown Rx Metrix Glucose Test Strip) handicap placard #1 ea 04/27/22 Unknown Rx albuterol sulfate 90 mcg/actuation 2 puff inhalation Q8H PRN 01/04/23 Unknown Rx aerosol inhaler shortness of breath or wheezing #8.5 grams levothyroxine 100 mcg tablet 100 mcg PO DAILY THYROID #90 tabs 08/08/23 Unknown Rx metformin 500 mg tablet,extended 500 mg PO BID DM 05/04/24 Unknown History release 24 hr glimepiride 2 mg tablet 2 mg PO DAILY 05/08/24 Unknown History ibuprofen 600 mg tablet 600 mg PO Q6H PRN PRN pain 05/08/24 Unknown History pantoprazole 40 mg tablet,delayed 40 mg PO DAILY heartburn 05/08/24 Unknown History release Allergy/AdvReac Type Severity Reaction Status Date / Time Gadolinium-MRI Contrast Allergy Anaphylaxis Verified 05/08/24 15:39 Medium (DYE) Penicillins Allergy Hives Verified 05/08/24 15:39 Family History Father Cancer Father Diabetes Mother Diabetes Surgical History (Updated 05/08/24 @ 16:[address] Jef Henley MD) Status post bypass gastrojejunostomy Bowel obstruction S/P appendectomy Social History Smoking Status: Current every day smoker tobacco type: cigarettes alcohol intake: never substance use type: does not use ROS ROS ED Constitutional Constitutional ED: Reports fatigue; Denies chills or fever(s) Eyes Eyes: Denies change in vision or diplopia ENT ENT ED: Denies rhinorrhea or sore throat Cardiovascular Cardiovascular: Denies chest pain or palpitations Respiratory/Chest Respiratory/Chest: Reports cough and dyspnea; Denies sputum Gastrointestinal Gastrointestinal: Denies abdominal pain, diarrhea, nausea or vomiting Genitourinary Genitourinary ED: Reports urinary frequency; Denies dysuria or hematuria Musculoskeletal Musculoskeletal: Denies back pain or neck pain Integumentary Denies abscess or rash Neurologic Neurologic: Denies headache(s), paresthesias or weakness Psychiatric Psychiatric: Reports anxiety; Denies suicidal thoughts Endocrine Endocrinology: Reports polydipsia and polyuria EXAM Physical Exam Const Vital Signs: 05/08/24 15:36 05/08/24 15:37 05/08/24 16:30 Temperature 97.4 F L Temperature Source Temporal Pulse Rate 80 88 Respiratory Rate 16 20 H Respiratory Effort Short of Breath Labored Respiratory Pattern Tachypnea Normal Blood Pressure 135/83 H Blood Pressure Mean 100 Pulse Ox 99 Oxygen Delivery Method Room Air 05/08/24 17:36 Temperature Temperature Source Pulse Rate 74 Respiratory Rate 16 Respiratory Effort Respiratory Pattern Blood Pressure 143/91 H Blood Pressure Mean 108 Pulse Ox 98 Oxygen Delivery Method Room Air Positive well nourished and well developed General Appearance ED: well developed and NAD HEENT Reports moist mucous membranes normocephalic and atraumatic Eyes PERRL and EOMs intact bilaterally Neck full ROM and supple Resp Resp Narrative: Tachypneic but no respiratory distress. Diffuse expiratory wheezes and prolonged expiratory phase. Equal breath sounds bilaterally. Auscultation: Negative for rales or rhonchi Cardio regular rate, regular rhythm and no murmurs Rate: Negative for tachycardic GI non-tender and non-distended Auscultation: normoactive bowel sounds Palpation: soft Back/Spine no CVA tenderness General Back: other FROM Extremity normal to inspection General Extremety ED: Negative for edema, pulses abnormal or tenderness General Extremity: Negative for edema or pulses abnormal Neuro oriented x3, CN's II-XII intact bilaterally and no sensory deficits noted Sensorium / Orientation: awake and alert Motor Exam: strength 5/5 throughout Psych Mood & Affect: anxious Skin no rashes or lesions noted and no wounds MDM MDM MDM Narrative Medical decision making narrative: Chemistries show that the patient's blood sugar is 619. He has associated hyponatremia. 2 view chest x-ray obtained because of his dyspnea, on my interpretation shows in comparison to his prior x-ray 4 days ago, he has now developed a right upper lobe infiltrate. Radiology did not call this, but in my judgement, there is a distinct difference and the patient has cough and dyspnea. Labs are noted. Urinalysis negative for infection. His EKG and troponin are normal, his ketones are negative, his pH is normal. Therefore he is not in DKA as expected. Plan is for admission given multiple recent visits for this and uncontrollable blood sugars. Started on Levaquin. Feels better after duoneb treatment. Lab Data Attestation: I reviewed the patient's lab results. Labs: Laboratory Results - last 24 hr 05/08/24 05/08/24 05/08/24 16:23 16:27 16:36 WBC 8.6 RBC 5.12 Hgb 14.6 Hct 43.5 MCV 85.0 MCH 28.5 MCHC 33.6 RDW Std Deviation 44.6 H RDW Coeff of Martínez 14.5 Plt Count 212 MPV 8.9 Immature Gran % (Auto) 2.900 H Neut % (Auto) 56.1 Lymph % (Auto) 25.8 [place] % (Auto) 11.9 H Eos % (Auto) 1.6 Baso % (Auto) 1.7 H Absolute Neuts (auto) 4.8 Absolute Lymphs (auto) 2.21 Nucleated RBC % 0 Sodium 127 L Potassium 4.3 Chloride 92 L Carbon Dioxide 25.0 Anion Gap 10 BUN 22 H Creatinine 1.07 Est GFR (MDRD) Af Amer 89 Est GFR (MDRD) Non-Af 74 BUN/Creatinine Ratio 20.6 H Glucose 619 H* Hemoglobin A1c 12.7 H Calcium 9.8 Troponin I High Sens 4 Urine Color Yellow Urine Clarity Clear Urine pH 6.0 Ur Specific [place] 1.010 Urine Protein Negative Urine Glucose (UA) 1000 H Urine Ketones Negative Urine Occult Blood Negative Urine Nitrite Negative Urine Bilirubin Negative Urine Urobilinogen Normal Ur Leukocyte Esterase Negative Urine RBC 0 SEEN Urine WBC 0 SEEN Ur Squamous Epith Cells 0 SEEN Urine Bacteria 0 SEEN Urine Mucus 0 SEEN Acetone Level NEGATIVE POC Glucose 05/08/24 18:05 WBC RBC Hgb Hct MCV MCH MCHC RDW Std Deviation RDW Coeff of Martínez Plt Count MPV Immature Gran % (Auto) Neut % (Auto) Lymph % (Auto) [place] % (Auto) Eos % (Auto) Baso % (Auto) Absolute Neuts (auto) Absolute Lymphs (auto) Nucleated RBC % Sodium Potassium Chloride Carbon Dioxide Anion Gap BUN Creatinine Est GFR (MDRD) Af Amer Est GFR (MDRD) Non-Af BUN/Creatinine Ratio Glucose Hemoglobin A1c Calcium Troponin I High Sens Urine Color Urine Clarity Urine pH Ur Specific [place] Urine Protein Urine Glucose (UA) Urine Ketones Urine Occult Blood Urine Nitrite Urine Bilirubin Urine Urobilinogen Ur Leukocyte Esterase Urine RBC Urine WBC Ur Squamous Epith Cells Urine Bacteria Urine Mucus Acetone Level POC Glucose 402 H ABG Data ABG results: ABG 05/08/24 16:41 Specimen Type NIRALI Sample Site Not entered O2 % 21.0 VBG pH 7.39 VBG pO2 47 H VBG HCO3 23 VBG Total CO2 24 VBG O2 Sat (Calc) 82 H VBG Base Excess -2 L POC Mix VBG pCO2 Pt Tmp 38.0 L O2 Delivery Device Not entered Radiography Diagnostic Testing: Clinical Impression(s) from Imaging Studies Chest X-Ray 05/08/24 16:50 IMPRESSION: Changes of probable chronic interstitial fibrosis. No acute superimposed consolidative process. Electronically Signed: Miky Kerns MD at 17:35 EDT , Rhythm Strip Rhythm Strip: Sinus Rhythm Rate: 75 Ectopy: None EKG Initial EKG: Attestation: I personally reviewed and interpreted this EKG as follows: Interpretation: Sinus Rhythm and No Acute Injury Pattern Comments: nml EKG Management Discussion w/another healthcare provider: Hospitalist Discharge Plan Dx/Rx/DC Orders Clinical Impression: Uncontrolled type 2 diabetes mellitus with hyperglycemia, Right upper lobe pneumonia [facility]position [facility] Dis[facility] Date/Time: 05/08/24 19:05
[2024-05-08] MEDS: 0.9% Normal Saline (1000mL) 1,000 ML 999 ML IV ×2 (16:23→17:30)
[2024-05-08 16:30] VITALS: PULSE 88; RESP 20
[2024-05-08] MEDS: Ipratropium/Albuterol Sulfate 3 ML AMPUL.NEB INHALATION (16:30)
[2024-05-08 16:37] LABS: Bacteria 0 SEEN /hpf (None Seen); Mucous, Urine 0 SEEN /hpf (<or=2+); Red Blood Cells-Urine 0 SEEN /hpf (0-5); Squamous Epithelial Cells - UA 0 SEEN /hpf (0-5); White Blood Cells 0 SEEN /hpf (0-5)
[2024-05-08 16:38] LABS: Absolute Lymphocyte Count 2.21 X10^3/uL (0.83-4.51); Absolute Neutrophil Count 4.8 X10^3/uL (2.0-7.7); Basophil# 0.15 X10^3/uL; Basophil% 1.7 % (0-1); Eosinophil# 0.14 X10^3/uL; Eosinophils% 1.6 % (0-5); Hematocrit 43.5 % (40-54); Hemoglobin 14.6 g/dL (13.0-16.5); Lymphocyte # 2.21 X10^3/ul (0.83-4.51); Lymphocyte % 25.8 % (19-41); Mean Corp Hgb Conc 33.6 g/dL (32-36); Mean Corpuscular Hgb 28.5 pg (27.0-32.0); Mean Platelet Vol. 8.9 fl (6.2-12.0); Monocyte# 1.02 X10^3/uL; Monocyte% 11.9 % (0-10); NRBC Flagged by Analyzer 0 % (0-5); Neutrophil # 4.81 X10^3/uL (2.7-7.7); Neutrophil % 56.1 % (47-70); Platelet Count 212 K/mm3 (150-450); RBC Distribution Width CV 14.5 % (11.6-14.6); RBC Distribution Width SD 44.6 fl (35.1-43.9); Red Blood Count 5.12 M/mm3 (4.6-6.2); White Blood Count 8.6 K/mm3 (4.4-11.0)
[2024-05-08 16:45] LABS: Blood Gas Specimen Type VEN; O2 Delivery Device Not entered; SITE Not entered; VBG BASE EXCESS -2 mmol/L (-1.0-3.5); VBG Bicarbonate 23 mmol/L (22-26); VBG PO2 47 mmHg (25-40); VBG SO2 82 % (50-70); VBG TCO2 24 mmol/L (23-33); VBG pH 7.39 (7.32-7.42)
--- NOTE | 2024-05-08 16:50 | RAD_ITS ---
INDICATION: sob EXAMINATION/TECHNIQUE: X-RAY - XR Chest 2 Views COMPARISON: 05/04/2024 FINDINGS: LINES/DEVICES: None. LUNGS: Stable coarsening of interstitial markings with prominent fibrosis right upper lung field. Lungs hyperinflated. No acute superimposed consolidation or pleural effusion. MEDIASTINUM AND CARDIOVASCULAR STRUCTURES: Cardiac silhouette stable within normal limits. BONES AND SOFT TISSUES: No acute changes. RAD/Chest PA and Lateral IMPRESSION: Changes of probable chronic interstitial fibrosis. No acute superimposed consolidative process. Electronically Signed: Miky Kerns MD at 17:35 EDT ,
[2024-05-08 16:52] LABS: Color, Urine Yellow (Yellow); Glucose, Dipstick 1000 mg/dl (Normal); Ketone-Dipstick Negative (Negative); Leukocyte Esterase-Dipstick Negative /ul (Negative); Nitrite-Dipstick Negative (Negative); Occult Blood-Urine Negative /ul (Negative); Protein-Dipstick Negative (Negative); Urine Bilirubin Dipstick Negative (Negative); Urine Clarity Clear (Clear); Urine Urobilinogen Normal (Normal)
[2024-05-08 17:05] LABS: Anion Gap 10 (5-15); BUN 22 mg/dL (7-18); BUN/Creat Ratio 20.6 RATIO (10-20); Calcium,Total 9.8 mg/dL (8.5-10.1); Chloride 92 mmol/L (98-107); Creatinine, Serum 1.07 mg/dL (0.70-1.30); EST Glomerular Filtration Rate 74 mL/min (>60); Est Glom Filt Rate - Afr Amer 89 mL/min (>60); Glucose 619 mg/dL (74-106); Potassium 4.3 mmol/L (3.5-5.1); Sodium Level 127 mmol/L (136-145); Troponin-I HS 4 pg/mL (3.0-78.0)
[2024-05-08 17:36] VITALS: BP 143/91; PULSE 74; RESP 16; O2SAT 98
--- NOTE | 2024-05-08 18:18 | HP.PCM.HOS_ITS ---
HPI - General General Date of Admission: 05/08/24 Date of Service: 05/08/24 Chief Complaint: Hyperglycemia HPI Narrative MARICARMEN OLMOS, is a 63 M with past medical history of type 2 diabetes mellitus, COPD, hypothyroidism, pancreatic head mass, prior gastrojejunostomy at [facility] who presents to the ED with concerns regarding polyuria polydipsia and extreme fatigue. He was informed regarding extremely high blood sugars and was encouraged to go to the ED during an internal medicine outpatient visit today. He has been diagnosed with type 2 diabetes for the last few years but over the last 2 months has stopped monitoring his sugars. His sugars were pretty well- controlled on metformin at home. Notes increased polyuria and polydipsia, has a urine output every 15 minutes and feels extremely dehydrated. He recently presented to the ED with COPD flare, and was also found to have a blood sugar of 700. At the time was he was encouraged to follow-up with outpatient PCP regarding his elevated blood sugars. He received 20 units of insulin at the time and his blood sugars went down from 7 44 to 475. Today at the time of presentation his WBC is 8.6, hemoglobin 14.6, platelet count 212, pH 7.4, bicarb of 23, sodium of 127, chloride 92, BUN 22, glucose of 619. His TSH on last check 05/08/2024 was 10.7, urine is positive for glucosuria [facility] Medical History (Updated 05/08/24 @ 17:[address] 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, rheumatoid Neuropathy Home Medications ?Medication ?Instructions ?Recorded ?Last Taken ?Type blood sugar diagnostic (True #100 ea 12/06/21 Unknown Rx Metrix Glucose Test Strip) handicap placard #1 ea 04/27/22 Unknown Rx albuterol sulfate 90 mcg/actuation 2 puff inhalation Q8H PRN 01/04/23 Unknown Rx aerosol inhaler shortness of breath or wheezing #8.5 grams diazepam 5 mg tablet 5 mg PO Q8 PRN Muscle Spasm #12 05/16/23 Unknown Rx tabs ibuprofen 600 mg tablet 600 mg PO Q6H PRN PRN pain #20 05/16/23 Unknown Rx TABLETS levothyroxine 100 mcg tablet 100 mcg PO DAILY #90 tabs 08/08/23 Unknown Rx metformin 500 mg tablet,extended 500 mg PO BID 05/04/24 Unknown History release 24 hr glimepiride 2 mg tablet 2 mg PO DAILY 05/08/24 Unknown History Allergy/AdvReac Type Severity Reaction Status Date / Time Gadolinium-MRI Contrast Allergy Anaphylaxis Verified 05/08/24 15:39 Medium (DYE) Penicillins Allergy Hives Verified 05/08/24 15:39 Family History Father Cancer Father Diabetes Mother Diabetes Surgical History (Updated 05/08/24 @ 16:[address] Jef Henley MD) Status post bypass gastrojejunostomy Bowel obstruction S/P appendectomy Social History Smoking Status: Current every day smoker tobacco type: cigarettes alcohol intake: never substance use type: does not use ROS Review of Systems ROS Unobtainable: Denies due to encephalopathy, due to endotracheal tube, due to mental condition, due to mental status or other Constitutional Constitutional: Reports change in weight, fatigue, malaise and weakness Eyes Eyes: Denies blurry vision, change in eye color, change in vision, discharge from eye(s), double vision, erythema, eye pain, loss of vision or other ENT HEENT: Denies abnormal hearing, dysphagia, ear pain, epistaxis, headache(s), hearing loss, nasal congestion, nasal discharge, post nasal drip, sinus pressure, sore throat or other Cardiovascular Cardiovascular: Reports dyspnea on exertion; Denies chest pain, claudication, edema, lightheadedness, orthopnea, palpitations, paroxysmal nocturnal dyspnea, rapid heart rate, syncope or other Respiratory/Chest Respiratory/Chest: Reports cough Gastrointestinal Gastrointestinal: Denies abdominal pain, coffee ground emesis, constipation, diarrhea, dyspepsia, hematemesis, hematochezia, loose stools, melena, nausea, vomiting or other Genitourinary Genitourinary: Denies burning urination, difficulty urinating, dysuria, hematuria, nocturia, urinary frequency, urinary hesitancy, urinary incontinence, urinary urgency or other Musculoskeletal Musculoskeletal: Denies arthralgias, back pain, joint pain, joint stiffness, joint swelling, myalgias, neck pain or other Neurologic Neurologic: Denies abnormal gait, abnormal speech, confusion, disequilibrium, dizziness, focal weakness, headache(s), numbness, paresthesias, seizure-like activity, seizures, syncope, tingling, tremor(s) or other Psychiatric Psychiatric: Denies anxiety, depression, homicidal ideation, suicidal ideation or other Vital Signs Vital Signs Vital Signs: 05/08/24 15:36 05/08/24 15:37 05/08/24 16:30 Temperature 97.4 F L Temperature Source Temporal Pulse Rate 80 88 Respiratory Rate 16 20 H Respiratory Effort Short of Breath Labored Respiratory Pattern Tachypnea Normal Blood Pressure 135/83 H Blood Pressure Mean 100 Pulse Ox 99 Oxygen Delivery Method Room Air 05/08/24 17:36 Temperature Temperature Source Pulse Rate 74 Respiratory Rate 16 Respiratory Effort Respiratory Pattern Blood Pressure 143/91 H Blood Pressure Mean 108 Pulse Ox 98 Oxygen Delivery Method Room Air Physical Exam Const alert and oriented x3 HEENT normocephalic and head/scalp atraumatic Eyes PERRL Neck no lymphadenopathy Resp normal respiratory effort and no retractions Cardio regular rate and regular rhythm GI normal to inspection, nondistended, normoactive bowel sounds Extremity normal to inspection Neuro oriented x3 Results Medical Records Data Attestation: I reviewed the patient's medical records Lab / Micro Data Attestation: I reviewed the patient's lab results. 05/08/24 16:23 05/08/24 16:23 Labs: Laboratory Results - last 24 hr 05/08/24 16:23: WBC 8.6, RBC 5.12, Hgb 14.6, Hct 43.5, MCV 85.0, MCH 28.5, MCHC 33.6, RDW Std Deviation 44.6 H, RDW Coeff of Martínez 14.5, Plt Count 212, MPV 8.9, I mmature Gran % (Auto) 2.900 H, Neut % (Auto) 56.1, Lymph % (Auto) 25.8, [place] % (Auto) 11.9 H, Eos % (Auto) 1.6, Baso % (Auto) 1.7 H, Absolute Neuts (auto) 4.8, Absolute Lymphs (auto) 2.21, Nucleated RBC % 0, Sodium 127 L, Potassium 4.3, C hloride 92 L, Carbon Dioxide 25.0, Anion Gap 10, BUN 22 H, Creatinine 1.07, Est GFR (MDRD) Af Amer 89, Est GFR (MDRD) Non-Af 74, BUN/Creatinine Ratio 20.6 H, G lucose 619 H*, Calcium 9.8, Troponin I High Sens 4, Acetone Level NEGATIVE 05/08/24 16:27: Urine Color Yellow, Urine Clarity Clear, Urine pH 6.0, Ur Specific [place] 1.010, Urine Protein Negative, Urine Glucose (UA) 1000 H, Urine Ketones Negative, Urine Occult Blood Negative, Urine Nitrite Negative, Urine Bilirubin Negative, Urine Urobilinogen Normal, Ur Leukocyte Esterase Negative, Urine RBC 0 SEEN, Urine WBC 0 SEEN, Ur Squamous Epith Cells 0 SEEN, Urine Bacteria 0 SEEN, Urine Mucus 0 SEEN ABG Data ABG results: ABG 05/08/24 16:41 Specimen Type NIRALI Sample Site Not entered O2 % 21.0 VBG pH 7.39 VBG pO2 47 H VBG HCO3 23 VBG Total CO2 24 VBG O2 Sat (Calc) 82 H VBG Base Excess -2 L POC Mix VBG pCO2 Pt Tmp 38.0 L O2 Delivery Device Not entered Rhythm Strip Rhythm Strip: Sinus Rhythm Rate: 75 Ectopy: None Imaging Radiology Impression Chest X-Ray 05/08/24 16:50 IMPRESSION: Changes of probable chronic interstitial fibrosis. No acute superimposed consolidative process. Electronically Signed: Miky Kerns MD at 17:35 EDT , Assessment & Plan Assessment/Plan (1) Uncontrolled type 2 diabetes mellitus with hyperglycemia: PLAN: Plan 63-year-old gentleman with a history of type 2 diabetes, hypothyroidism, obesity, prior pancreatectomy and gastrojejunostomy for suspected pancreatic head mass, presents to the ED with severe hyperglycemia and associated osmotic symptoms. #Hyperglycemia: -Will start with subcutaneous insulin therapy given the normal anion gap -Insulin sliding scale with target of blood sugar 140 to 180 mg/DL -N.p.o. for now -Monitor potassium and phosphorus levels -Received 1 L of normal saline in the ED -Input output monitoring -Dietitian consult -Nutrition consult -Case management evaluation for discharge #Hypothyroidism: TSH is elevated and T3 is low -Continue outpatient thyroxine for now as likely noncompliance with medications the reason for the hypothyroidism -Will benefit from endocrinology consult at the time of discharge #COPD: Continues to smoke -No concerns regarding exacerbation -Continue to monitor # Nicotine use: - PRN nicotine patch 21 mg #Poor dentition, no abscess -Needs outpatient follow-up #Suspected community-acquired pneumonia: Started on IV antibiotics in the ED for suspected infection -No changes in cough, shortness of breath or features of infection no leukocytosis, -Will hold off antibiotics for now #Suspected head of pancreas mass -Most of his treatment was at [facility], no records available for the same -Continue to monitor #DVT prophylaxis: -Enoxaparin 40 mg subcutaneous Charges/Coding Visit Charges Inpatient E&M: 45493 Init Hosp L2
[2024-05-08] MEDS: levoFLOXacin IV 750 MG/150 ML BAG 100 MG IV (18:21)
[2024-05-08] MEDS: Insulin Lispro 100 UNIT/ML INSULN.PEN 20 UNIT SC (18:24)
[2024-05-08 18:26] LABS: Bedside Glucose 402 mg/dL (74-106)
[2024-05-08 18:33] VITALS: BP 143/91; PULSE 74; RESP 16; TEMP 36.5; O2SAT 98
[2024-05-08 19:29] VITALS: BMI 32.8
[2024-05-08 19:35] VITALS: BP 155/86; PULSE 74; RESP 18; TEMP 37.1; O2SAT 94
[2024-05-08 19:43] LABS: Hemoglobin A1c 12.7 % (3.8-5.6)
[2024-05-08] MEDS: diazePAM 5 MG Tablet PO (20:00)
[2024-05-08] MEDS: Insulin Lispro 100 UNIT/ML INSULN.PEN SC (21:55)
[2024-05-08 22:16] LABS: Bedside Glucose 325 mg/dL (74-106)
[2024-05-08 22:16] LABS: Bedside Glucose 341 mg/dL (74-106)
[2024-05-09] MEDS: LORazepam 2 MG/ML Syringe 0.5 MG IV (01:17)
[2024-05-09 03:00] VITALS: BP 139/89; PULSE 72; RESP 18; TEMP 36.8; O2SAT 95
[2024-05-09] MEDS: Insulin Lispro 100 UNIT/ML INSULN.PEN SC ×3 (03:05→12:19)
[2024-05-09 03:25] LABS: Bedside Glucose 250 mg/dL (74-106)
[2024-05-09] MEDS: diazePAM 5 MG Tablet PO (06:24)
[2024-05-09] MEDS: Levothyroxine 100 MCG Tablet PO (06:24)
[2024-05-09 06:41] LABS: Absolute Lymphocyte Count 1.62 X10^3/uL (0.83-4.51); Basophil# 0.11 X10^3/uL; Basophil% 1.3 % (0-1); Eosinophil# 0.21 X10^3/uL; Eosinophils% 2.5 % (0-5); Hemoglobin 13.5 g/dL (13.0-16.5); Lymphocyte # 1.62 X10^3/ul (0.83-4.51); Lymphocyte % 19.7 % (19-41); Mean Corp Hgb Conc 32.1 g/dL (32-36); Monocyte# 0.96 X10^3/uL; Monocyte% 11.7 % (0-10); NRBC Flagged by Analyzer 0 % (0-5); Neutrophil # 5.04 X10^3/uL (2.7-7.7); Neutrophil % 61.2 % (47-70); Platelet Count 203 K/mm3 (150-450); RBC Distribution Width CV 14.6 % (11.6-14.6); Red Blood Count 4.83 M/mm3 (4.6-6.2); White Blood Count 8.2 K/mm3 (4.4-11.0)
[2024-05-09 06:49] LABS: International Normalized Ratio 1.1; Prothrombin Time (Protime)PT. 13.8 SECONDS (11.7-14.9)
[2024-05-09 07:16] LABS: Bedside Glucose 329 mg/dL (74-106)
[2024-05-09 07:24] LABS: ALB/GLOB Ratio 0.7 RATIO (0.9-2.4); AST(SGOT) 55 U/L (15-37); Alanine Aminotransfer ALT/SGPT 47 U/L (16-61); Albumin, Serum 2.5 g/dL (3.2-5.0); Alkaline Phosphatase 119 U/L (45-117); Anion Gap 8 (5-15); BUN 18 mg/dL (7-18); Calcium,Total 8.6 mg/dL (8.5-10.1); Chloride 102 mmol/L (98-107); Creatinine, Serum 0.75 mg/dL (0.70-1.30); EST Glomerular Filtration Rate 111 mL/min (>60); Est Glom Filt Rate - Afr Amer 134 mL/min (>60); Estimated Creatinine Clearance 107.84 ml/min; Globulin 3.8 g/dL (2.2-4.2); Glucose 335 mg/dL (74-106); Magnesium 2.1 mg/dL (1.6-2.6); Phosphorus 2.3 mg/dL (2.5-4.9); Potassium 4.1 mmol/L (3.5-5.1); Protein, Total 6.3 g/dL (6.4-8.2); Sodium Level 133 mmol/L (136-145); Thyroid Stim Hormone (TSH) 6.61 uIU/mL (0.358-3.74)
[2024-05-09 09:00] VITALS: BP 131/80; PULSE 76; RESP 16; TEMP 36.7; O2SAT 95
[2024-05-09] MEDS: Enoxaparin 40 MG/0.4 ML Syringe SC (09:09)
[2024-05-09] MEDS: Pantoprazole Sodium 40 MG Tablet PO (09:09)
[2024-05-09 10:33] LABS: Bedside Glucose 343 mg/dL (74-106)
--- NOTE | 2024-05-09 11:55 | CASEMGMT ---
TANNER MATIAS Assessment Face to Face with patient for initial transition planning/care coordination assessment. TANNER MATIAS introduced self and role at [facility], pt voices understanding. Pt is A&Ox4 and is resting comfortably in bed and is calm. Care providers, pharmacy, and demographics verified. Admitting dx: Hyperglycemia PCP: Alfonzo Márquez Specialists: Denies. Pt given a list of providers including information on Endocrinology. Preferred Pharmacy: [facility] Insurance: [employer] [facility], [facility] [place]: Yes LNOK: Chanel Boykin ([place]) Living Arrangements: Pt lives with his SO in a 2 story home with a flat entrance ADLs/IADLs: Ind Transportation: Self, SO DME: Working [employer] and enough supplies. Cane. HHC/SNF: Denies history or needs Pt?s goal: Home Plan: Home no needs. 6-Click is 23. No PT ordered. Pt states that he feels safe discharging home with no additional needs. Pt states that he plans to get set up with an [facility] [place]. Pt denies further questions or concerns. Archana Fay RN, CM
[2024-05-09] MEDS: Insulin Glargine-YFGN 100 UNIT/ML Pen 20 UNIT SC (12:20)
[2024-05-09 14:07] VITALS: BP 128/84; PULSE 79; RESP 16; TEMP 36.8; O2SAT 99
[2024-05-09 14:27] LABS: Bedside Glucose 390 mg/dL (74-106)
--- NOTE | 2024-05-09 14:47 | DCINST_ITS ---
Discharge Instructions Diet Discharge Diet: 1800 Calorie Control Diet Activity Discharge Activity: Return to Normal Activity Weight Bearing Status: Full weight bearing Follow Up Care Test Results: Test results from this visit will be discussed in further detail at your follow- up appointment, if applicable. Discharge Plan Admission Admit Date/Time: 05/08/24 18:09 Primary Reason for Your Visit: Uncontrolled type 2 diabetes Attending Provider: Santy Montemayor Primary Care Provider: Alfonzo Márquez Consulting Providers: Jose Clarke Instructions Additional Instructions / Restrictions: Contact your family physician if your blood sugar consistently is above 350 to adjust your insulin dosage Discharge Orders/Prescriptions Prescriptions: New insulin glargine [Lantus Solostar U-100 Insulin] 100 unit/mL (3 mL) insulin pen 25 unit subcut BID Qty: 15 0RF Humalog Tempo Pen(U-100)Insuln 100 unit/mL insulin pen, sensor 10 unit subcut TID Qty: 15 0RF Rx Instructions: with meals (DME) pen needle, diabetic 31 gauge x 1/4 needle See Rx Instructions .Route Qty: 100 0RF Rx Instructions: As directed Continued albuterol sulfate 90 mcg/actuation HFA aerosol inhaler 2 puff inhalation Q8H PRN (Reason: shortness of breath or wheezing) Qty: 8.5 1RF pantoprazole 40 mg tablet,delayed release (DR/EC) 40 mg PO DAILY ibuprofen 600 mg tablet 600 mg PO Q6H PRN PRN (Reason: pain) (DME) True Metrix Glucose Test Strip Strip See Rx Instructions .ROUTE .MEDSUPPLY Qty: 100 11RF Rx Instructions: USE TO CHECK BS TID AND PRN (DME) handicap placard See Rx Instructions .Route .MEDSUPPLY Qty: 1 0RF Rx Instructions: length of time: 5 years diagnosis: emphysema J43.9 levothyroxine 100 mcg tablet 100 mcg PO DAILY Qty: 90 3RF Discontinued glimepiride 2 mg tablet 2 mg PO DAILY metformin 500 mg tablet extended release 24 hr 500 mg PO BID Referrals / Follow Up: Alfonzo Márquez MD [Primary Care Provider] - Within 1 Week Disposition Disposition (needs filled in before D/C Order can be placed): Home, Self Care
--- NOTE | 2024-05-09 15:00 | PCM.DC.SUM ---
Providers Date of Admission: 05/08/24 Date of Discharge: 05/09/24 Primary Care Physician: Alfonzo Márquez MD Reason For Visit: HYPERGLYCEMIA Diagnosis Discharge Diagnosis (1) Uncontrolled type 2 diabetes mellitus with hyperglycemia: Status: Acute Code(s): E11.65 - Type 2 diabetes mellitus with hyperglycemia Plan 1. Uncontrolled type 2 diabetes #2 chronic obstructive pulmonary disease #3 hypothyroidism #4 hyponatremia Community-acquired pneumonia was ruled out Medications at Discharge Home Medications blood sugar diagnostic (True Metrix Glucose Test Strip) #100 ea 12/06/21 handicap placard #1 ea 04/27/22 albuterol sulfate 90 mcg/actuation aerosol inhaler 2 puff inhalation Q8H PRN shortness of breath or wheezing #8.5 grams 01/04/23 levothyroxine 100 mcg tablet 100 mcg PO DAILY THYROID #90 tabs 08/08/23 ibuprofen 600 mg tablet 600 mg PO Q6H PRN PRN pain 05/08/24 pantoprazole 40 mg tablet,delayed release 40 mg PO DAILY heartburn 05/08/24 insulin glargine 100 unit/mL (3 mL) subcutaneous pen (Lantus Solostar U-100 Insulin) 25 unit (0.25 mL) subcut BID #15 mL 05/09/24 insulin lispro 100 unit/mL subcutaneous pen, sensor (Humalog Tempo Pen (U-100) Insulin) 10 unit (0.1 mL) subcut TID #15 mL 05/09/24 pen needle, diabetic 31 gauge x 1/4 #100 ea 05/09/24 Hospital Course Operations None Procedures None Summary of Care Provided Minutes Spent on Discharge: 30 Hospital Course: This 63-year-old white male was seen in the emergency room at [facility] with chief complaint of elevated blood sugars, his blood sugars have been elevated and his PCP was unable to make adjustments of his medications that would bring her sugars down. He had been seen in the emergency room 3 days prior and he had been placed on an additional oral medication but his sugars remained high. Patient was referred to the emergency room for evaluation of his blood sugars. Labs obtained showed elevated glucose at 619, sodium was low at 127, BUN was elevated at 22. Patient CBC was unremarkable. Patient was admitted to PCU, fingerstick blood sugars were monitored and the patient was placed on sliding scale insulin and finally basal insulin was added to the patient's medical regimen. Patient's sugars improved during his hospital stay, patient felt capable of giving himself injections. On 05/09/2024, patient was seen and examined: On examination he appeared in good health and spirits. Vital signs as documented. Skin warm and dry and without overt rashes. Neck without JVD, neck was supple, trachea midline, thyroid was normal. Lungs clear bilaterally, normal air movement was noted. Heart exam notable for regular rhythm, normal sounds and absence of murmurs, rubs or gallops. Abdomen unremarkable and without evidence of organomegaly, masses, or abdominal aortic enlargement. Bowel sounds are present, abdomen is not distended. Extremities nonedematous, no cyanosis was noted, no clubbing was noted. Neuro: Cranial nerves II through XII are grossly intact, no focal motor deficits were noted, sensation to light touch and pinprick intact, motor exam 5/5 throughout. Psych: Patient is alert and oriented x3, he does not appear anxious or depressed, he does not appear agitated. On 05/09/2024, patient was seen and examined and felt to be in stable condition for discharge home Weight / BMI Weight Weight: 101 kg Body Mass Index (BMI) 32.8 ABG / Lab / Microbiology Data 05/09/24 05:25 05/09/24 05:25 Laboratory: Laboratory Results - last 24 hr 05/08/24 16:23: WBC 8.6, RBC 5.12, Hgb 14.6, Hct 43.5, MCV 85.0, MCH 28.5, MCHC 33.6, RDW Std Deviation 44.6 H, RDW Coeff of Martínez 14.5, Plt Count 212, MPV 8.9, Immature Gran % (Auto) 2.900 H, Neut % (Auto) 56.1, Lymph % (Auto) 25.8, [place] % (Auto) 11.9 H, Eos % (Auto) 1.6, Baso % (Auto) 1.7 H, Absolute Neuts (auto) 4.8, Absolute Lymphs (auto) 2.21, Nucleated RBC % 0, Sodium 127 L, Potassium 4.3, Chloride 92 L, Carbon Dioxide 25.0, Anion Gap 10, BUN 22 H, Creatinine 1.07, Est GFR (MDRD) Af Amer 89, Est GFR (MDRD) Non-Af 74, BUN/Creatinine Ratio 20.6 H, Glucose 619 H*, Calcium 9.8, Troponin I High Sens 4, Acetone Level NEGATIVE 05/08/24 16:27: Urine Color Yellow, Urine Clarity Clear, Urine pH 6.0, Ur Specific Stark 1.010, Urine Protein Negative, Urine Glucose (UA) 1000 H, Urine Ketones Negative, Urine Occult Blood Negative, Urine Nitrite Negative, Urine Bilirubin Negative, Urine Urobilinogen Normal, Ur Leukocyte Esterase Negative, Urine RBC 0 SEEN, Urine WBC 0 SEEN, Ur Squamous Epith Cells 0 SEEN, Urine Bacteria 0 SEEN, Urine Mucus 0 SEEN 05/08/24 16:36: Hemoglobin A1c 12.7 H 05/08/24 18:05: POC Glucose 402 H 05/08/24 19:45: POC Glucose 341 H 05/08/24 21:54: POC Glucose 325 H 05/09/24 03:04: POC Glucose 250 H 05/09/24 05:25: WBC 8.2, RBC 4.83, Hgb 13.5, Hct 42.0, MCV 87.0, MCH 28.0, MCHC 32.1, RDW Std Deviation 47.0 H, RDW Coeff of Martínez 14.6, Plt Count 203, MPV 9.0, Immature Gran % (Auto) 3.600 H, Neut % (Auto) 61.2, Lymph % (Auto) 19.7, [place] % (Auto) 11.7 H, Eos % (Auto) 2.5, Baso % (Auto) 1.3 H, Absolute Neuts (auto) 5.0, Absolute Lymphs (auto) 1.62, Nucleated RBC % 0, PT 13.8, INR 1.1, Sodium 133 L, Potassium 4.1, Chloride 102, Carbon Dioxide 23.0, Anion Gap 8, BUN 18, Creatinine 0.75, Estim Creat Clear Calc 107.84, Est GFR (MDRD) Af Amer 134, Est GFR (MDRD) Non-Af 111, BUN/Creatinine Ratio 24.0 H, Glucose 335 H, Calcium 8.6, Phosphorus 2.3 L, Magnesium 2.1, Total Bilirubin 0.30, Direct Bilirubin 0.10, AST 55 H, ALT 47, Alkaline Phosphatase 119 H, Total Protein 6.3 L, Albumin 2.5 L, Globulin 3.8, Albumin/Globulin Ratio 0.7 L, TSH 6.61 H 05/09/24 06:17: POC Glucose 329 H 05/09/24 10:15: POC Glucose 343 H 05/09/24 14:08: POC Glucose 390 H ABG: ABG 05/08/24 16:41 Specimen Type NIRALI Sample Site Not entered O2 % 21.0 VBG pH 7.39 VBG pO2 47 H VBG HCO3 23 VBG Total CO2 24 VBG O2 Sat (Calc) 82 H VBG Base Excess -2 L POC Mix VBG pCO2 Pt Tmp 38.0 L O2 Delivery Device Not entered Radiography Diagnostic Testing: Radiology Impression Chest X-Ray 05/08/24 16:50 IMPRESSION: Changes of probable chronic interstitial fibrosis. No acute superimposed consolidative process. Electronically Signed: Miky Kerns MD at 17:35 EDT Reading Location ID and State: [address] [place] [address] Tel , Service support , D/C Instructions Discharge Diet: 1800 Calorie Control Diet Weight Bearing Status: Full weight bearing Meaningful Use Info Meaningful Use Meaningful Use Diagnoses (Choose all that apply): None applicable Ischemic Stroke Statin Dosing Therapy Reference: STATIN DOSE THERAPY REFERENCE: * Patients > 75 years receive moderate or high dose statin therapy. * Patients 75 years or YOUNGER should receive HIGH intensity statin dose unless contraindicated. You will be required to document reason for non-treatment if statin daily dose does not meet guidelines. HIGH DOSE STATIN THERAPY DAILY Atorvastatin > than or = to 40 mg Rosuvastatin > than or = to 20 mg Amlodipine + Atorvastatin > than or = to 2.5/40 mg Ezetimibe + Simvastatin 10/80 mg Simvastatin 80mg Discharge Plan Admission Admit Date/Time: 05/08/24 18:09 Primary Reason for Your Visit: Uncontrolled type 2 diabetes Attending Provider: Santy Montemayor Primary Care Provider: Alfonzo Márquez Consulting Providers: Jose Clarke Instructions Additional Instructions / Restrictions: Contact your family physician if your blood sugar consistently is above 350 to adjust your insulin dosage Discharge Orders/Prescriptions Prescriptions: New insulin glargine [Lantus Solostar U-100 Insulin] 100 unit/mL (3 mL) insulin pen 25 unit subcut BID Qty: 15 0RF Humalog Tempo Pen(U-100)Insuln 100 unit/mL insulin pen, sensor 10 unit subcut TID Qty: 15 0RF Rx Instructions: with meals (DME) pen needle, diabetic 31 gauge x 1/4 needle See Rx Instructions .Route Qty: 100 0RF Rx Instructions: As directed Continued albuterol sulfate 90 mcg/actuation HFA aerosol inhaler 2 puff inhalation Q8H PRN (Reason: shortness of breath or wheezing) Qty: 8.5 1RF pantoprazole 40 mg tablet,delayed release (DR/EC) 40 mg PO DAILY ibuprofen 600 mg tablet 600 mg PO Q6H PRN PRN (Reason: pain) (DME) True Metrix Glucose Test Strip Strip See Rx Instructions .ROUTE .MEDSUPPLY Qty: 100 11RF Rx Instructions: USE TO CHECK BS TID AND PRN (DME) handicap placard See Rx Instructions .Route .MEDSUPPLY Qty: 1 0RF Rx Instructions: length of time: 5 years diagnosis: emphysema J43.9 levothyroxine 100 mcg tablet 100 mcg PO DAILY Qty: 90 3RF Discontinued glimepiride 2 mg tablet 2 mg PO DAILY metformin 500 mg tablet extended release 24 hr 500 mg PO BID Referrals / Follow Up: Alfonzo Márquez MD [Primary Care Provider] - Within 1 Week Disposition Disposition (needs filled in before D/C Order can be placed): Home, Self Care Charges/Coding Visit Charges Inpatient E&M: 77105 Subs Hosp L1
== END 2024-05-09 16:38 | disposition home or self-care (01) | DRG 638 ==
LOC: ED 17:30 → PCU 18:32
PROVIDERS: Admitting Provider Internal Medicine; Emergency Provider Emergency Medicine; PCP Family Medicine; Visit Provider Internal Medicine
DX: E11.65 Type 2 diabetes mellitus with hyperglycemia (principal); E87.1 Hypo-osmolality and hyponatremia; E11.40 Type 2 diabetes mellitus with diabetic neuropathy, unspecified; J43.9 Emphysema, unspecified; M06.9 Rheumatoid arthritis, unspecified; E03.9 Hypothyroidism, unspecified; F17.210 Nicotine dependence, cigarettes, uncomplicated; K21.9 Gastro-esophageal reflux disease without esophagitis; E66.9 Obesity, unspecified; Z68.32 Body mass index [BMI] 32.0-32.9, adult; T38.1X6A Underdosing of thyroid hormones and substitutes, initial encounter; Z91.148 Patient's other noncompliance with medication regimen for other reason; Z79.84 Long term (current) use of oral hypoglycemic drugs; Z79.890 Hormone replacement therapy; Z79.899 Other long term (current) drug therapy; Z90.410 Acquired total absence of pancreas
CPT/HCPCS: 36415; 71046; 80048; 80053; 80061; 81001; 82009; 82248; 82803; 82962; 83036; 83735; 84100; 84439; 84443; 84481; 84484; 85025; 85610; 93005; 94640; 97802; 99284; J7030; A4216

== ENCOUNTER → 2024-05-08 | Outpatient (CLI) | payer MEDICARE, MEDICAID, SELFPAY ==
[2024-05-08 11:20] LABS: Hemoglobin A1c 12.9 % (3.8-5.6)
[2024-05-08 14:05] LABS: Anion Gap 10 (5-15); BUN 21 mg/dL (7-18); BUN/Creat Ratio 22.5 RATIO (10-20); Chloride 96 mmol/L (98-107); Cholesterol 184 mg/dL (200); Creatinine, Serum 0.94 mg/dL (0.70-1.30); EST Glomerular Filtration Rate 86 mL/min (>60); Est Glom Filt Rate - Afr Amer 104 mL/min (>60); Glucose 452 mg/dL (74-106); High Density Lipoprotein 36 mg/dL; Potassium 4.4 mmol/L (3.5-5.1); Sodium Level 128 mmol/L (136-145); T4 Free Direct 1.07 ng/dL (0.76-1.46); Triglycerides 392 mg/dL; Very Low Density Lipoprotein 78 mg/dL (5-40)
== END | disposition home or self-care (01) ==
LOC: MFPLAB 09:34
PROVIDERS: PCP Internal Medicine; Visit Provider Family Medicine
DX: E11.9 Type 2 diabetes mellitus without complications (principal); E03.9 Hypothyroidism, unspecified
CPT/HCPCS: 36415; 80048; 80061; 83036; 84439; 84443; 84481

== ENCOUNTER → 2024-09-20 | Outpatient (CLI) | payer MEDICARE, MEDICAID, SELFPAY ==
[2024-09-20 17:52] LABS: Thyroid Stim Hormone (TSH) 0.632 uIU/mL (0.358-3.740)
== END | disposition home or self-care (01) ==
LOC: MFPLAB 14:21
PROVIDERS: PCP Family Medicine; Referring Provider Family Medicine; Visit Provider Family Medicine
DX: E03.9 Hypothyroidism, unspecified (principal)
CPT/HCPCS: 36415; 84443

== ENCOUNTER → 2025-09-12 | Outpatient (CLI) | payer MEDICARE, MEDICAID, SELFPAY ==
[2025-09-12 15:28] LABS: Anion Gap 10 (5-15); BUN 21 mg/dL (4-19); BUN/Creat Ratio 32.3 RATIO (10-20); Calcium,Total 9.3 mg/dL (7.6-11.0); Carbon Dioxide 28.4 mmol/L (21.0-32.0); Chloride 98 mmol/L (98-108); Glucose 173 mg/dL (70-99); Potassium 4.5 mmol/L (3.3-5.1)
[2025-09-12 15:52] LABS: Microalbumin,Random Urine 42.3 mg/L (<20 mg/L)
== END | disposition home or self-care (01) ==
LOC: MTLAB 12:38
PROVIDERS: PCP Family Medicine; Referring Provider Family Medicine; Visit Provider Family Medicine
DX: E11.9 Type 2 diabetes mellitus without complications (principal)
CPT/HCPCS: 36415; 80048; 82043

== ENCOUNTER → 2025-10-06 | Outpatient (CLI) | payer MEDICARE, MEDICAID, SELFPAY ==
--- NOTE | 2025-10-06 18:00 | CT_ITS ---
PROCEDURE: LOW DOSE CT LUNG SCREENING 10/06/2025 REASON FOR EXAM: TOBACCO USE Chronic obstructive pulmonary disease. 50 year smoker. Current smoker. TECHNIQUE: Procedure Code: [id number] Modality: CT Procedure: LOW DOSE CT LUNG SCREENING Coronal and Sagittal reconstruction series were provided. One or more dose reduction techniques were used (e.g., Automated exposure control, adjustment of the mA and/or kV according to patient size, use of iterative reconstruction technique). RADIATION DOSE SUMMARY: CTDlvol: 3 mGy DLP: 114 mGycm COMPARISON: May 08, 2024, May 04, 2024, August 29, 2022 FINDINGS: Pulmonary Nodules: 4.1 mm solid, noncalcified nodule left upper lobe image 113. 4.0 mm solid, noncalcified nodule left upper lobe image 109. 4.8 mm ground-glass, noncalcified nodule right lower lobe image 181. Lungs and Airways: Severe upper lobe predominant centrilobular emphysema. Apical capping is present bilaterally. There appears to have been prior wedge resection in the posterior right upper lobe with some local architectural distortion. No consolidation or mass seen. Hardware:None Lymph Nodes:None appear enlarged Heart and Vasculature:Normal-size. No pericardial effusion.Mild aortic atherosclerosis. Coronary Artery Calcifications: Absent Pleura:No pleural effusion or pneumothorax. Upper Abdomen:Unremarkable Bones:Degenerative changes of the thoracic spine. CT/Low Dose CT Lung Screening IMPRESSION: 1. Severe emphysema. Scarring in the upper lobes. Prior wedge resection righ t upper lobe. 2. No mass or consolidation. 3. Pulmonary nodules as above. These are less than 6 mm. ACR Lung-RADS guidel jose suggest the following: Category 2 (Benign appearance or behavior). Continue annual screening with Low Dose chest CT in 12 months. Coronary artery calcification (CAC) is absent Reading Location: [id number]
== END | disposition home or self-care (01) ==
LOC: CT 17:59
PROVIDERS: PCP Family Medicine; Referring Provider Family Medicine; Visit Provider Family Medicine
DX: Z12.2 Encounter for screening for malignant neoplasm of respiratory organs (principal); J44.9 Chronic obstructive pulmonary disease, unspecified; Z13.6 Encounter for screening for cardiovascular disorders; F17.210 Nicotine dependence, cigarettes, uncomplicated
CPT/HCPCS: 71271